=== PATIENT | male | born 1945 | race Caucasian/White ===

== ENCOUNTER 2018-10-12 13:30 | Outpatient (RCR) | payer OTHER, SELFPAY ==
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
--- NOTE | 2018-09-05 17:49 | PT.OPPOC ---
Current Diagnoses Pain in right thigh (09/05/18) Provider Visit Care Team Role Provider Type Reilly Guerra MD Attending Provider Physician Primary Care Provider Specialty: [facility] Address: [place], [address] Email: [email or web address] Plan Of Care PT-OP-T Assessment and Plan Start: 09/05/18 16:16 Freq: Status: Active Protocol: Document 09/05/18 13:45 HH (Rec: 09/05/18 16:45 HH [email or web address]) Physical Therapy Assessment Rehab Potential Rehabilitation Potential Good Evaluation Complexity Number of Personal Factors/Comorbidities 3 or More Number of Body Systems Impaired 4 or More Clinical Presentation at Evaluation Stable Impairments Impairments Activity Tolerance Functional Activities Functional Mobility Gait Pain Posture ROM Sensation Soft Tissue Mobility Strength Tone Transfers Other Concerns Barriers to Rehabilitation pt currently taking oxycodone- acetaminophen 5-325 4/5 times a day Goals Strength Impairment impaired LE strength Longterm Goal (LTG) To improve overall LE strength by 1 MMT grade for sit to stand activties without UE support. LTG Duration 12 weeks limited amb distance Impairment cannot walk >2 miles a day now Field Research Assistant Goal (LTG) Pt will be able to amb 2 miles twice a day to improve quality of life. LTG Duration 12 weeks gait Impairment impaired gait Field Research Assistant Goal (LTG) Pt will amb >300 ft without AD for 2 min walking test to improve his gait efficiency in a safe manner. LTG Duration 12 weeks LEFS Impairment high LEFS score Short Term Goal (STG) To improve pt's impairment to 1-19% to improve overall functional mobility without pain STG Duration 6 weeks Longterm Goal (LTG) To improve pt's impairment to 0% to improve overall functional mobility without pain LTG Duration 12 weeks Assessment Summary Assessment Pt presents to clinic with c/o cramping pain at R hip/ posterior of R thigh since Jul. Upon assessment, pain was only reproduced (@distal R hamstrings) with maximal resistive R knee flexion and hip extension in prone position. -ve findings for all hip and knee special tests. This possibly indicates pt had a distal hamstrings strain Pt does demonstrate significant limited trunk, hip, knee and ankle mobility, espeically B hamstrings flexibility. Pt maintains his position with B hips, knees flexed either in standing/ ambulating, which indicates his chronic muscular tension on both hamstrings and quads. Supine HS stretch was given as HEP today. Pt will benefit from skilled PT for postural training, HS flexibility ex, gait training and overall LE strengthening to prevent further injury. Physical Therapy Plan Frequency and Duration Frequency of Treatment 2x/Week Duration of Treatment 12 Plan of Care Start Date 09/05/18 Plan of Care End Date 12/05/18 Therapeutic Interventions Therapeutic Interventions Balance Training Gait Training Home Exercise Program Joint Mobilizations Manual Therapy Neuromuscular Re-education Patient/Caregiver Education Self-Care/Home Management Soft Tissue Mobilization Taping Therapeutic Activities Therapeutic Exercises Modalities Cold Pack/Ice Massage Electric Stimulation Hot Packs Next Visit Focus/Plan Next Note Type Treatment Note Next Visit Plan Reassess HEP HS flexibility ex hip ext flexibility ex Plan of Care Dates Plan of Care Start Date 09/05/18 Plan of Care End Date 12/05/18 Please Sign and Return: I have reviewed this Plan of Care and certify that the skilled therapy services above are required to meet the patient?s needs. Physician Signature Date Printed Name and Credentials Clinical Instructor Signature Printed Name and Credentials
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
== END 2018-10-13 08:32 | disposition home or self-care (01) ==
LOC: PHYS 13:30
PROVIDERS: PCP Family Medicine; Visit Provider Family Medicine
DX: M79.651 Pain in right thigh (principal)
CPT/HCPCS: 97110; 97112; 97140; 97162; 97535

== ENCOUNTER → 2018-12-15 15:26 | Outpatient (CLI) | payer OTHER, SELFPAY | PROVIDERS: PCP Family Medicine; Visit Provider Family Medicine | DX: L97.524 Non-pressure chronic ulcer of other part of left foot with necrosis of bone (principal); G90.09 Other idiopathic peripheral autonomic neuropathy; M86.172 Other acute osteomyelitis, left ankle and foot; M19.072 Primary osteoarthritis, left ankle and foot; Z98.1 Arthrodesis status; L97.526 Non-pressure chronic ulcer of other part of left foot with bone involvement without evidence of necrosis | CPT/HCPCS: 11044; 36415; 73660; 80053; 84134; 85025; 85651; 86140; 87070; 87075; 87076; 87077; 87186; 87205; 99213; 99214 ==

== ENCOUNTER → 2018-12-15 15:35 | Outpatient (CLI) | payer OTHER, SELFPAY ==
--- NOTE | 2018-12-15 15:41 | DI.RAD.S_ITS ---
PROCEDURE: XR TOE LT MIN 2V INDICATIONS: OSTEOPOROSIS TECHNIQUE: 3 views of the left foot acquired. COMPARISON: [facility], , FOOT 3V LEFT, 10/01/2009, 8:53. FINDINGS: Bones: No acute fracture or dislocation. Overall, stable alignment compared to 2010 study. Interval arthrodesis across the first tarsometatarsal joint without evidence for hardware complication. Interval left tibiotalar arthrodesis. Lateral plate and screw fixation of the distal fibula. Surgical anchors noted in the left calcaneus. Severe degenerative changes of the left midfoot and first metatarsophalangeal joint. Stable degenerative changes involving the metatarsophalangeal joints the second through fifth toes. Stable appearance of chronic amputation deformities of the second and third toes at the level of the middle phalanges. Chronic fracture deformity of the fifth metatarsal unchanged stable degenerative changes of the left first interphalangeal joint. No suspicious bony lesions. Soft tissues: No suspicious soft tissue densities or calcifications. IMPRESSION: 1. Status post interval arthrodesis of the first tarsometatarsal joint without hardware complication. 2. Status post interval arthrodesis of the left tibiotalar joint. No evidence for hardware complication. 3. Status post interval surgical intervention of the left calcaneus. 4. Stable appearance of severe osteoarthrosis of the left midfoot, metatarsophalangeal joints, and toes. 5. Stable fracture deformities of the fifth metatarsal. 6. Stable appearance of chronic amputation changes of the second and third toes. 7. Overall, no suspicious osseous lesions, periarticular osteopenia, or acute osseous abnormalities. No significant interval change in radiographic appearance of bone mineralization. Dictated by: Alejandro Lipscomb M.D. on 12/15/2018 at 17:45 Approved by: Alejandro Lipscomb M.D. on 12/15/2018 at 17:53
[2018-12-15 17:13] LABS: Add Manual Diff / Slide Review NO; Basophils Absolute Auto 0 /uL (0-100); Basophils Percent Auto 0.7 % (0-2); Eosinophils Absolute Auto 100 /uL (0-450); Hemoglobin 13.2 g/dL (13.5-17.5); Lymphocytes Absolute Auto 1400 /uL (1100-4500); Mean Corpuscular HGB Conc 34.8 % (30-36); Mean Corpuscular Hemoglobin 30.9 PG (26-34); Mean Corpuscular Volume 88.7 fL (80-100); Monocytes Absolute Auto 900 /uL (0-900); Monocytes Percent Auto 16.2 % (3-14); Neutrophils Absolute Auto 3300 /uL (1500-7000); Neutrophils Percent Auto 57.1 % (50-75); Platelet Count 282 X10^3/uL (150-400); Red Blood Cell Count 4.28 X10^6/uL (4.5-5.9); Red Cell Distribution Width 13.7 % (11.6-14.8); White Blood Cell Count 5.8 X10^3/uL (4.5-11.0)
[2018-12-15 17:39] LABS: Erythrocyte Sedimentation Rate 60 MM/HR (0-15)
[2018-12-15 18:21] LABS: Alanine Aminotransferase 20 IU/L (21-72); Albumin 4.4 g/dL (3.5-5.0); Albumin Globulin Ratio 1.5 (1.0-2.8); Alkaline Phosphatase 91 U/L (38-126); Aspartate Aminotransferase 21 IU/L (17-59); BUN Creatinine Ratio 17.8 (6-22); Bilirubin Total 0.4 mg/dL (0.2-1.3); Blood Urea Nitrogen 16 mg/dL (9-20); Calcium 9.3 mg/dL (8.4-10.2); Carbon Dioxide 29 mmol/L (22-32); Chloride 101 mmol/L (98-107); Estimated Glomerular Filt Rate > 60.0 mL/min (>60); Glucose 109 mg/dL (80-110); HEMOLYSIS < 15 (0-50); Potassium 4.2 mmol/L (3.4-5.1); Sodium 141 mmol/L (137-145); Total Protein 7.4 g/dL (6.3-8.2)
== END ==
PROVIDERS: PCP Family Medicine; Visit Provider Family Medicine
DX: L97.524 Non-pressure chronic ulcer of other part of left foot with necrosis of bone (principal); G90.09 Other idiopathic peripheral autonomic neuropathy; M86.172 Other acute osteomyelitis, left ankle and foot; M19.072 Primary osteoarthritis, left ankle and foot; Z98.1 Arthrodesis status
CPT/HCPCS: 36415; 73660; 80053; 84134; 85025; 85651; 86140

== ENCOUNTER → 2018-12-22 08:28 | Outpatient (CLI) | payer OTHER, SELFPAY | PROVIDERS: PCP Family Medicine; Visit Provider Family Medicine | DX: G90.09 Other idiopathic peripheral autonomic neuropathy (principal); L97.524 Non-pressure chronic ulcer of other part of left foot with necrosis of bone; M86.172 Other acute osteomyelitis, left ankle and foot; B95.7 Other staphylococcus as the cause of diseases classified elsewhere | CPT/HCPCS: 11044; 99213 ==

== ENCOUNTER → 2018-12-29 11:37 | Outpatient (CLI) | payer OTHER, SELFPAY | PROVIDERS: PCP Family Medicine; Visit Provider Podiatrist | DX: Z01.818 Encounter for other preprocedural examination (principal) | CPT/HCPCS: 11042; 93005; 97597; 99212; 99214 ==

== ENCOUNTER → 2019-01-05 08:26 | Outpatient (CLI) | payer OTHER, SELFPAY | PROVIDERS: PCP Family Medicine; Visit Provider Family Medicine | DX: G90.09 Other idiopathic peripheral autonomic neuropathy (principal); L97.521 Non-pressure chronic ulcer of other part of left foot limited to breakdown of skin; L89.890 Pressure ulcer of other site, unstageable; M86.172 Other acute osteomyelitis, left ankle and foot; R60.0 Localized edema; B95.7 Other staphylococcus as the cause of diseases classified elsewhere | CPT/HCPCS: 99214 ==

== ENCOUNTER 2019-01-12 11:49 | Day surgery (SDC) | payer OTHER, SELFPAY ==
[2019-01-08 14:54] VITALS: BMI 23.7
--- NOTE | 2019-01-12 | PATH_ITS ---
[facility] Accession Number: [id number] . 01 Material submitted: . toe - LEFT 4TH TOE . 02 Diagnosis: Left Fourth Toe, Amputation: Skin with ulceration and abscess and associated acute and chronic inflammation that extends into the deep subcutaneous tissue. Foreign body giant cell reaction is present within the deep subcutaneous tissue. Portions of bone with reactive features and regions of chronic osteomyelitis. MRV/01/15/2019 . 02 Electronically signed: . Haley Jorge MD, Pathologist NPI- [id number] . 01 Gross description: . Received in formalin, labeled with the patient's name and left fourth toe, is a 3.3 x 2.6 x 2.3 cm digit with a 1.0 x 0.9 cm unremarkable nail. The skin and soft tissue resection margins appear viable. Bone is not visible at the resection margin. The skin is raymundo-white and there is a 1.0 x 0.7 cm ulceration present located 0.2 cm from the resection margin. The bone within the toe appears viable. Also in the same container is a separate fragment of raymundo-brown bone measuring 1.8 x 1.4 x 1.0 cm. [employer] sections are submitted as follows: A1 - skin and soft tissue resection margin; A2 - skin ulceration; A3 - bone within digit following decalcification; A4 - separate piece of bone following decalcification. (YANIV:[id number]) /MRV . 02 Pathologist provided ICD-10: M86.672 . 02 CPT . 408666, [id number] Performed at: [address] [facility] [address], [place], [place] [id number] MD Sammy Garrison MD Phone: [phone] Performed at: [facility] [id number] [place] [id number] MD Caty Grimm MD Phone: [phone]
[2019-01-12 12:17] VITALS: BMI 23.4
[2019-01-12 12:25] VITALS: BP 160/91; PULSE 84; RESP 10; TEMP 36.3; O2SAT 99
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
[2019-01-12] MEDS: LACTATED RINGERS 1,000 ML 42 ML IV (12:44)
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
[2019-01-12] MEDS: CEFAZOLIN 1 GM VIAL IM (13:04)
--- NOTE | 2019-01-12 13:26 | SUR.OPER ---
Supine on padded OR bed, head on pillow, arms secured on padded arm boards at <90 degrees abduction, legs uncrossed, safety belt at thigh, tape over blanket over lower legs.
[2019-01-12] MEDS: BUPIVACAINE 0.5% W/ EPI (PF) VIAL 30 ML INJ (13:45)
[2019-01-12] MEDS: LIDOCAINE 2% INJ MDV 20 ML INJ (13:46)
[2019-01-12 13:59] VITALS: BP 115/68; PULSE 65; RESP 15; TEMP 36.6; O2SAT 97
--- NOTE | 2019-01-12 13:59 | P.OP_ITS ---
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 Surgeon: Pavel Vallejo Click Yes if Unassisted: Yes Anesthesia Type: Sedation and Local Operative Notes Closure Type: primary Specimen(s): other (amputation specimen 4th toe left foot) Estimated Blood Loss (mL): 2 Blood products transfused: none Tourniquet time (min): 0 Procedure in detail: Operation: The patient was taken from the day surgery area back to the OR via gurney, after having been given IV antibiotic prophylaxis. He was placed on the OR table in the supine position, appropriate monitors attached and IV sedation administered by the anesthesiologist. Local anesthetic block with approximately 9 cc plain lidocaine was administered. A calf tourniquet was placed, but not utilized throughout the case. The foot was then prepped and draped in the usual sterile fashion from the toes to tourniquet. Procedure: Amputation of 4th toe at metatarsophalangeal joint, left foot Attention was directed toward the base of the 4th toe. A modified racquet shaped incision was created at somewhat of an irregular angle due to the significant deformity within this toe. A longer medial flap was created to allow for closure. Sharp dissection was carried down with hemostasis controlled with electrocautery. The tissues appeared quite viable with decent bleeding. The toe was disarticulated at the PIP joint. After that, careful blunt dissection down the shaft of the proximal phalanx was performed with Mohawk elevator. Using a bone cutting forceps, the distal portion then of the proximal phalanx was sectioned. The bone was found be quite hard. No bony spicules remained. At this point and aggressive antibiotic irrigation was performed. Wound cultures were then taken post-irrigation. The incision was then sutured closed with 3-0 nylon. Wound edges were nice and pink with brisk capillary refill. A light gauze compression bandage was then applied. The patient tolerated the procedure and anesthesia well without any apparent complications. He left the OR with vital signs stable and digital perfusion intact. Will be allowed to be weight-bearing protected in a walking postop shoe. Will be seen for follow-up care in the [place] office next week. Complications: none Condition: stable Disposition: PACU Plan for aftercare: As above, patient is allowed to be weight-bearing protected in a postop shoe. He is to leave the bandage clean and dry and follow up with me in the [place] office in 1 week.
[2019-01-12 14:28] VITALS: BP 136/77; PULSE 61; TEMP 36.2; O2SAT 99
== END 2019-01-12 14:39 | disposition home or self-care (01) ==
PROVIDERS: PCP Family Medicine; Visit Provider Podiatrist
PROC: (CPT 28820; principal; 2019-01-12 13:00)
DX: M86.672 Other chronic osteomyelitis, left ankle and foot (principal); L97.524 Non-pressure chronic ulcer of other part of left foot with necrosis of bone; I10 Essential (primary) hypertension; I48.0 Paroxysmal atrial fibrillation
CPT/HCPCS: 28820; 87070; 87075; 87205; J0690; J2250; J2704; J3010

== ENCOUNTER → 2019-08-17 08:29 | Outpatient (CLI) | payer OTHER, SELFPAY ==
[2019-08-17 09:18] LABS: Add Manual Diff / Slide Review NO; Basophils Absolute Auto 0 /uL (0-100); Basophils Percent Auto 1.1 % (0-2); Eosinophils Absolute Auto 100 /uL (0-450); Eosinophils Percent Auto 2.4 % (2-4); Hematocrit 40.8 % (41-53); Hemoglobin 14.4 g/dL (13.5-17.5); Lymphocytes Absolute Auto 1200 /uL (1100-4500); Lymphocytes Percent Auto 28.6 % (25-40); Mean Corpuscular HGB Conc 35.2 % (30-36); Mean Corpuscular Hemoglobin 31.3 PG (26-34); Mean Corpuscular Volume 88.9 fL (80-100); Monocytes Absolute Auto 500 /uL (0-900); Neutrophils Absolute Auto 2200 /uL (1500-7000); Neutrophils Percent Auto 54.9 % (50-75); Platelet Count 218 X10^3/uL (150-400); Red Blood Cell Count 4.59 X10^6/uL (4.5-5.9); Red Cell Distribution Width 13.8 % (11.6-14.8); White Blood Cell Count 4.1 X10^3/uL (4.5-11.0)
[2019-08-17 09:40] LABS: Alanine Aminotransferase 18 IU/L (<50); Albumin 4.7 g/dL (3.5-5.0); Albumin Globulin Ratio 1.6 (1.0-2.8); Alkaline Phosphatase 79 U/L (38-126); Aspartate Aminotransferase 24 IU/L (17-59); BUN Creatinine Ratio 22.2 (6-22); Bilirubin Total 0.6 mg/dL (0.2-1.3); Blood Urea Nitrogen 20 mg/dL (9-20); Calcium 10.1 mg/dL (8.4-10.2); Carbon Dioxide 30 mmol/L (22-32); Chloride 103 mmol/L (98-107); Cholesterol 212 mg/dL (140-199); Estimated Glomerular Filt Rate > 60.0 mL/min (>60); Glucose 133 mg/dL (80-110); HDL Cholesterol 68 mg/dL (40-60); HEMOLYSIS < 15 (0-50); LDL Cholesterol Calculated 127 mg/dL (<100); Potassium 4.6 mmol/L (3.4-5.1); Sodium 140 mmol/L (137-145); Total Protein 7.7 g/dL (6.3-8.2); Triglycerides 84 mg/dL (35-150); VLDL Cholesterol Calculated 17 mg/dL (2-30)
[2019-08-17 10:01] LABS: Thyroid Stimulating Hormone 0.88 uIU/mL (0.47-4.68)
== END ==
PROVIDERS: PCP Family Medicine; Referring Provider Family Medicine; Visit Provider Family Medicine
DX: Z00.00 Encounter for general adult medical examination without abnormal findings (principal); I10 Essential (primary) hypertension; E06.3 Autoimmune thyroiditis
CPT/HCPCS: 36415; 80053; 80061; 84443; 85025

== ENCOUNTER → 2020-10-27 07:21 | Outpatient (CLI) | payer OTHER, SELFPAY ==
[2020-10-27 08:20] LABS: Hemoglobin A1C% w Est Avg Glu 6.2 % (4.0-6.0)
[2020-10-27 08:30] LABS: Alanine Aminotransferase 12 IU/L (<50); Albumin 4.1 g/dL (3.5-5.0); Albumin Globulin Ratio 1.3 (1.0-2.8); Alkaline Phosphatase 109 U/L (38-126); Aspartate Aminotransferase 19 IU/L (17-59); BUN Creatinine Ratio 18.6 (6-22); Bilirubin Total 0.3 mg/dL (0.2-1.3); Blood Urea Nitrogen 16 mg/dL (9-20); Calcium 10.2 mg/dL (8.4-10.2); Carbon Dioxide 28 mmol/L (22-32); Chloride 102 mmol/L (98-107); Cholesterol 181 mg/dL (140-199); Estimated Glomerular Filt Rate > 60.0 mL/min (>60); Globulin 3.1 g/dL (1.7-4.1); Glucose 140 mg/dL (80-110); HDL Cholesterol 69 mg/dL (40-60); HEMOLYSIS < 15 (0-50); LDL Cholesterol Calculated 94 mg/dL (<100); Potassium 4.4 mmol/L (3.4-5.1); Sodium 139 mmol/L (137-145); Total Protein 7.2 g/dL (6.3-8.2); Triglycerides 92 mg/dL (35-150)
[2020-10-27 08:34] LABS: Add Manual Diff / Slide Review NO; Basophils Absolute Auto 100 /uL (0-100); Basophils Percent Auto 0.9 % (0-2); Eosinophils Absolute Auto 100 /uL (0-450); Eosinophils Percent Auto 1.9 % (2-4); Hematocrit 36.7 % (41-53); Hemoglobin 12.6 g/dL (13.5-17.5); Lymphocytes Absolute Auto 1400 /uL (1100-4500); Lymphocytes Percent Auto 17.4 % (25-40); Mean Corpuscular HGB Conc 34.3 % (30-36); Mean Corpuscular Hemoglobin 29.8 PG (26-34); Mean Corpuscular Volume 86.8 fL (80-100); Monocytes Absolute Auto 800 /uL (0-900); Monocytes Percent Auto 10.3 % (3-14); Neutrophils Absolute Auto 5500 /uL (1500-7000); Neutrophils Percent Auto 69.5 % (50-75); Platelet Count 302 X10^3/uL (150-400); Red Blood Cell Count 4.23 X10^6/uL (4.5-5.9); Red Cell Distribution Width 13.7 % (11.6-14.8); White Blood Cell Count 7.9 X10^3/uL (4.5-11.0)
[2020-10-27 08:55] LABS: Thyroid Stimulating Hormone 1.14 uIU/mL (0.47-4.68)
== END ==
PROVIDERS: PCP Family Medicine; Referring Provider Family Medicine; Visit Provider Family Medicine
DX: Z00.00 Encounter for general adult medical examination without abnormal findings (principal); R73.03 Prediabetes; E78.5 Hyperlipidemia, unspecified
CPT/HCPCS: 36415; 80053; 80061; 83036; 84443; 85025

== ENCOUNTER 2023-08-03 08:32 | Inpatient (IN) | payer OTHER, SELFPAY ==
[2023-08-03] VITALS (20 sets, daily range): BP systolic 113–165; BP diastolic 57–91; PULSE 73–97; RESP 10–17; TEMP 36.1–36.9; O2SAT 94–100; BMI 22.5; BMI 21.2
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
--- NOTE | 2023-08-03 09:05 | DI.CT.S_ITS ---
PROCEDURE: CT UE LT W CON INDICATIONS: hand/wrist/forarm abscess after cat bite TECHNIQUE: After the administration of intravenous contrast, 3 mm axial sections acquired of the left distal forearm and hand , with coronal and sagittal reformats. COMPARISON: None. FINDINGS: Image quality: Excellent. Bones: No fracture or osseous lesion. Soft tissues: Multiple adjacent peripherally enhancing multi locular fluid collections within the dorsal and radial aspect of the distal forearm and wrist are present, spanning roughly 45 mm transverse by 15 mm craniocaudal. At the volar aspect of the ulnocarpal interface, there is an 18 mm peripherally enhancing fluid collection. IMPRESSION: 1. Multiple fluid collections as described above, consistent with abscesses in the appropriate clinical setting. Dictated by: Tyler Conte M.D. on 08/03/2023 at 9:47 Approved by: Tyler Conte M.D. on 08/03/2023 at 9:51
--- NOTE | 2023-08-03 09:05 | PC.NURSE ---
Pt came in because he got bit by his cat in the left wrist. Pt states that cat was a stray prior and unsure if cat is up to date on feline vaccinations. Pt also unsure of how many abx pills he has taken. Pt has seen pcp and failed outpatient antibiotic tx. Left wrist puncture wound with yellow drainage and surrounding tissue 2+ non-pitting edema and warm to touch. Pt HR 110. Pt states that he has a 5/10 pain and that the skin feels tight. Pt a&ox4.
[2023-08-03 09:09] LABS: Add Manual Diff / Slide Review NO; Basophils Absolute Auto 100 /uL (0-100); Basophils Percent Auto 0.9 % (0-2); Eosinophils Absolute Auto 100 /uL (0-450); Eosinophils Percent Auto 0.9 % (2-4); Hematocrit 35.7 % (41-53); Hemoglobin 12.4 g/dL (13.5-17.5); Lymphocytes Absolute Auto 1300 /uL (1100-4500); Lymphocytes Percent Auto 18.3 % (25-40); Mean Corpuscular HGB Conc 34.8 % (30-36); Mean Corpuscular Hemoglobin 28.9 PG (26-34); Mean Corpuscular Volume 83.1 fL (80-100); Monocytes Absolute Auto 800 /uL (0-900); Monocytes Percent Auto 11.1 % (3-14); Neutrophils Absolute Auto 5000 /uL (1500-7000); Neutrophils Percent Auto 68.8 % (50-75); Platelet Count 354 X10^3/uL (150-400); Red Blood Cell Count 4.29 X10^6/uL (4.5-5.9); Red Cell Distribution Width 14.1 % (11.6-14.8); White Blood Cell Count 7.3 X10^3/uL (4.5-11.0)
[2023-08-03 09:15] LABS: Alanine Aminotransferase 13 IU/L (<50); Albumin 4.3 g/dL (3.5-5.0); Albumin Globulin Ratio 1.1 (1.0-2.8); Alkaline Phosphatase 125 U/L (38-126); Aspartate Aminotransferase 20 IU/L (17-59); BUN Creatinine Ratio 17.7 (6-22); Bilirubin Total 0.5 mg/dL (0.2-1.3); Blood Urea Nitrogen 14 mg/dL (9-20); Calcium 9.8 mg/dL (8.4-10.2); Carbon Dioxide 25 mmol/L (22-32); Chloride 104 mmol/L (98-107); Estimated Glomerular Filt Rate > 60 mL/min (>60); Glucose 125 mg/dL (80-110); HEMOLYSIS < 15 (0-50); Potassium 3.6 mmol/L (3.4-5.1); Sodium 139 mmol/L (137-145); Total Protein 8.3 g/dL (6.3-8.2)
[2023-08-03 09:16] LABS: Lactate (Lactic Acid) 1.3 mmol/L (0.7-2.1)
[2023-08-03] MEDS: cefTRIAXone 2,000 MG in SODIUM CHLORIDE 0.9% 100 ML 200 MG IV (09:26)
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
[2023-08-03] MEDS: SODIUM CHLORIDE 0.9% 1,000 ML 100 ML IV (13:39)
[2023-08-03] MEDS: CLINDAMYCIN 600 MG/50 ML PIGGYBACK 50 MG IV (13:39)
--- NOTE | 2023-08-03 15:00 | SUR.OPER ---
Supine on padded OR bed, head on pillow, RIGHT arm secured on padded arm boards at <90 degrees abduction, LEFT ARM ON ARM BOARD AND HELD ON FIELD, legs uncrossed, safety belt at thigh, tape over blanket over lower legs.
[2023-08-03] MEDS: BUPIVACAINE 0.25% (PF) 30 ML, EPINEPHrine 0.15 MG INJ (15:07)
--- NOTE | 2023-08-03 15:13 | P.OP_ITS ---
Operative Date/Time/Diagnoses Date of procedure: 08/03/23 Time of procedure: 14:40 Pre-op diagnosis: Cat bite left hand and wrist, with infection, abscess L02.419, W55.01xa Post-op diagnosis: same Procedure & Clinicians Procedure: Incision drainage and irrigation abscess deep left wrist CPT code 23793 Same procedure as scheduled: Yes Indications: The patient is a right-hand dominant male a 78 years old he was bit by his personal home pet cat on the left wrist just over 1 week ago he had a puncture wound dorsally along his dorsal radial wrist that became more swollen and painful and red and started draining. Saw primary care yesterday and received Augmentin but had worsening swelling pain and purulent drainage with fluctuance. He was seen in the emergency room a CT scan demonstrated multiple, multiloculated abscesses at the dorsal wrist. He was indicated for formal drainage of his abscess and admission for IV antibiotics due to his deep infection. The risks and benefits of the procedure have been discussed with the patient and given the opportunity to ask questions. The risks of surgery include but are not limited to infection, malunion, nonunion, persistence of pain, damage to nerves and blood vessels, posttraumatic arthritis, DVT, PE, coardiopulmonary complications and . The patient expressed a thorough understanding of the risks and benefits of surgery and has elected to proceed. Consent was signed in the office today. Surgeon: Shannon Molina Click Yes if Unassisted: Yes Anesthesia Type: General and Local Operative Notes Findings: Dorsal radial wrist abscess with fluctuance and tracking over the dorsal wrist and proximal and radial with purulent drainage. Wound at the dorsal radial wrist proximally 0.5 cm draining purulent fluid with surrounding induration Closure Type: not applicable Specimen(s): other (Tissue and culture swabs sent for Gram stain, culture) Estimated Blood Loss (mL): 10 Tourniquet time (min): 7 Procedure in detail: Patient was seen in the preoperative area the site of surgery marked informed consent confirmed. The patient was brought to the operating room. General anesthesia was administered. The left upper extremity was prepped and draped in the standard sterile fashion a formal time-out procedure was performed confirming the patient's side and site of surgery administration of his regularly scheduled IV antibiotics. Attention was turned to the left upper extremity this was prepped and draped in the standard sterile fashion. [place] exsanguination was utilized and the tourniquet raised on the arm to 250 mmHg. Attention was turned to the hand there was a dorsal radial puncture wound with gross draining purulence and fluctuance tracking subcutaneously dorsally over the wrist as well some fluctuance proximally along the radial wrist and distal forearm. The puncture wound was excised and opened distally and proximally to allow access to the abscess cavity this was complex multiloculated with a abscess track proximally radially along the 1st dorsal compartment and subcutaneously over the dorsum of the wrist and a 3rd deeper pocket in between the extensors. Abscess cavities were explored fully. This was opened using the hemostat and tenotomy scissors. Tissue samples were taken for culture. And culture swabs were taken. The purulence from the abscess cavities was expressed and evacuated. The wound was thoroughly irrigated with 3 L of saline using cysto tubing and the wound further debrided with forceps and tenotomy scissors. Tourniquet was released hemostasis was achieved. No foreign bodies were found. Drapes were changed to clean drapes and clean dry gloves. A nylon stitch was placed in each corner of the extensile parts of the incision and the central portion of the wound was packed with plain quarter-inch packing gauze tracked into the dorsal and radial abscess cavities to keep the wound open. 10 cc of 0.25% Marcaine with epinephrine was used as local anesthetic. Sterile gauze and a Joanna wrap and then Coban were applied. The patient was woken from anesthesia and taken to the recovery room in good condition there were no immediate complications from this procedure all counts were correct. Complications: none Post-operative Condition: stable Disposition: PACU Plan for aftercare: Range of motion of the wrist and fingers as tolerated. Tomorrow we will start b.i.d. warm soapy soaks in warm soapy water for about 15 minutes remove packing and replace a packing wick or small piece of gauze to keep the area open for the next 3 days then may cease packing but continue twice daily warm soapy soaks. There are [address] that will come out at the 2 week postoperative appointment. Will be tailored from IV to oral antibiotics based on cultures sensitivities and clinical improvement
[2023-08-03] MEDS: MORPHINE 2 MG/ML INJ 3 MG IV (16:45)
[2023-08-03] MEDS: OXYCODONE IR 5 MG TABLET PO (19:52)
[2023-08-04] MEDS: OXYCODONE IR 5 MG TABLET PO ×4 (01:52→18:24)
[2023-08-04 06:38] LABS: Add Manual Diff / Slide Review NO; Basophils Absolute Auto 0 /uL (0-100); Basophils Percent Auto 0.4 % (0-2); Eosinophils Absolute Auto 0 /uL (0-450); Eosinophils Percent Auto 0.2 % (2-4); Hematocrit 34.5 % (41-53); Hemoglobin 11.7 g/dL (13.5-17.5); Lymphocytes Absolute Auto 1300 /uL (1100-4500); Mean Corpuscular HGB Conc 33.9 % (30-36); Mean Corpuscular Hemoglobin 28.6 PG (26-34); Mean Corpuscular Volume 84.5 fL (80-100); Monocytes Absolute Auto 900 /uL (0-900); Monocytes Percent Auto 10.7 % (3-14); Neutrophils Absolute Auto 6300 /uL (1500-7000); Neutrophils Percent Auto 73.7 % (50-75); Platelet Count 341 X10^3/uL (150-400); Red Blood Cell Count 4.09 X10^6/uL (4.5-5.9); White Blood Cell Count 8.6 X10^3/uL (4.5-11.0)
[2023-08-04 06:50] LABS: Alanine Aminotransferase 11 IU/L (<50); Albumin 3.9 g/dL (3.5-5.0); Albumin Globulin Ratio 1.1 (1.0-2.8); Alkaline Phosphatase 105 U/L (38-126); Aspartate Aminotransferase 21 IU/L (17-59); BUN Creatinine Ratio 17.3 (6-22); Bilirubin Total 0.5 mg/dL (0.2-1.3); Blood Urea Nitrogen 14 mg/dL (9-20); Calcium 9.3 mg/dL (8.4-10.2); Carbon Dioxide 33 mmol/L (22-32); Chloride 107 mmol/L (98-107); Estimated Glomerular Filt Rate > 60 mL/min (>60); Globulin 3.7 g/dL (1.7-4.1); Glucose 107 mg/dL (80-110); HEMOLYSIS 18 (0-50); Potassium 3.8 mmol/L (3.4-5.1); Sodium 141 mmol/L (137-145); Total Protein 7.6 g/dL (6.3-8.2)
[2023-08-04 07:00] VITALS: BP 161/86; PULSE 84; RESP 16; TEMP 36.9; O2SAT 99
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
[2023-08-04 09:03] VITALS: BP 161/86; PULSE 84
[2023-08-04] MEDS: hydroCHLOROthiazide 25 MG TABLET 12.5 MG PO (09:03)
[2023-08-04] MEDS: lisinopriL 10 MG TABLET PO (09:03)
[2023-08-04] MEDS: METOPROLOL ER 25 MG TABLET PO (09:03)
--- NOTE | 2023-08-04 09:27 | CM.DANOTE ---
Initial DCP Assessment Visit Note Reviewed EMR and team rounds for pt's medical status and updates. Met with pt and his nephew at bedside to introduce self and role, pt found to be alert/oriented and able to express needs/preferences for d/c. His nephew will plan to drive him home once he's medically ready. Payor: Victoria Gifford PCP: Dr. Guerra Pt is a 78 year-old M who presented to the ED last evening with a worsening cat bite wound he incured on 07/25 on his left wrist. He was seen by his PCP on 07/29 and started on oral augmentin, however it continued to worsen despite the antibiotics. His hand is now swollen into his forearm w/purulent discharge. Ortho was consulted/Dr. Molina, who agreed to the plan to take pt to the OR yesterday afternoon for an I&D of his forearm and wrist. He was then admitted to the floor for continued IV ABO's tx and post-op wound care. He has instructions from Ortho to f/u in 2-weeks in their clinic for wound assessment. No anticipated home d/c needs at this time. DCP will continue to follow and assist as needed. Discharge Planning/Care Management CM Discharge Assessment Start: 08/04/23 09:21 Freq: Status: Active Protocol: Document 08/04/23 09:21 DPL (Rec: 08/04/23 09:26 DPL [id number]) Discharge Planning Assessment Assigned Failure Analysis Technician JANAE Roman Advance Directives? Yes: POSLT Advance Directives on File Yes History Provided By Patient,Medical Record Has Patient been admitted in last 30 No days? Prior Living Arrangements House Household Members none Type of transporation used prior to Drives own vehicle admit Independent with ADL's Yes Is patient alert and oriented? Yes Comment N/A Comment N/A Comment N/A Comment No identified home d/c needs at this time. Barriers to Discharge No Discharge Plan Home Transportation Arrangement Nephew Referrals Initiated None needed Whiteboard Updated in Patient Room with Yes name and ext. # of Failure Analysis Technician Review Status In Process Please Provide Date Initial DC 08/04/23 Assessment Was Performed
[2023-08-04 10:21] VITALS: PULSE 81
[2023-08-04] MEDS: cefTRIAXone 2,000 MG in SODIUM CHLORIDE 0.9% 100 ML 200 MG IV (10:27)
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
[2023-08-04] MEDS: CLINDAMYCIN 600 MG/50 ML PIGGYBACK 50 MG IV ×3 (11:17→22:24)
[2023-08-04] MEDS: ACETAMINOPHEN 325 MG TABLET 650 MG PO (12:11)
[2023-08-04] MEDS: MORPHINE 2 MG/ML INJ 3 MG IV ×2 (16:45→22:24)
[2023-08-04 20:00] VITALS: O2SAT 96
[2023-08-04 22:00] VITALS: BP 111/61; PULSE 82; RESP 17; TEMP 36.9; O2SAT 96
[2023-08-05] MEDS: ACETAMINOPHEN 325 MG TABLET 650 MG PO ×3 (00:58→20:47)
[2023-08-05] MEDS: OXYCODONE IR 5 MG TABLET PO ×3 (00:58→20:48)
[2023-08-05] MEDS: CLINDAMYCIN 600 MG/50 ML PIGGYBACK 50 MG IV (05:20)
--- NOTE | 2023-08-05 06:24 | DI.MRI.S_ITS ---
PROCEDURE: MR WRIST LT WO/W CON INDICATIONS: infection TECHNIQUE: Noncontrast coronal proton density fast spin echo and T2 fast spin echo with fat saturation; coronal 3-D gradient echo, axial T1 spin echo and T2 fast spin echo with fat saturation, axial T1 spin echo with fat saturation, sagittal T1 spin echo through the wrist. Post-contrast axial, coronal, and sagittal T1 spin echo with fat saturation through the wrist. COMPARISON: None. FINDINGS: Image quality: Excellent. Bones and cartilage: Osteoarthritic changes are noted throughout left wrist joints with joint space narrowing, subchondral sclerosis and marginal osteophyte formation. Subcortical T2 hyperintense and T1 hypointense areas are noted scattered throughout carpal bones and show mild contrast enhancement. No evidence of avascular necrosis . No cortical destruction or abnormal periosteal reaction. Carpal ligaments: The scapholunate and lunotriquetral ligaments appear intact. In the absence of intra-articular contrast, the extrinsic carpal ligaments are not well identified. On sagittal images, the pisohamate ligament appears intact. Triangular fibrocartilage complex: Signal abnormality within central and lateral portion of triangular fibrocartilage is seen concerning for TFC tear. The adjacent meniscal homolog appears normal in the absence of intra-articular contrast. The extensor carpi ulnaris tendon is normal in location and morphology. Tendons and soft tissues: There is soft tissue swelling with overlying skin ulceration over dorsal and radial aspect of wrist at the level of carpal bones. There is significant fluid distension of adjacent 2nd extensor compartment tendon sheath with heterogeneous contrast enhancement. Thickened extensor carpi radialis and brevis tendons is seen with intrasubstance T2 hyperintense signal at the level of proximal carpal row suggestive of moderate tenosynovitis and intrasubstance partial-thickness tear. Markedly thickened extensor pollicis longus tendon with intrasubstance T2 hyperintense signal and fluid distending tendon sheath at the level of Tang's tubercle is also seen. No discrete drainable peripherally enhancing fluid collection is noted. Rest of the extensor tendons are intact. The carpal tunnel structures appear normal, including the median nerve. The ulnar nerve appears normal within Guyon's canal. IMPRESSION: 1. Ulceration and cellulitis over dorsal and radial aspect of wrist at the level of carpal bones. No discrete drainable abscess collection. 2. Moderate grade tenosynovitis and intrasubstance partial-thickness tear involving 2nd and 3rd extensor compartment at the level of proximal carpal row as described above. No full-thickness tendon rupture. 3. Osteoarthritic changes throughout wrist joints. Subcortical T2 hyperintense signal scattered in carpal bones and show mild contrast enhancement concerning for erosion possibly secondary to inflammatory arthropathy suggest clinical correlation. No MR evidence of osteomyelitis. No fracture or dislocation. No evidence of avascular necrosis. 4. Scapholunate and lunotriquetral ligaments are intact. 5. Suggestion of triangular fibrocartilage tear in its mid and radial portion. Dictated by: Nishant Benson M.D. on 08/05/2023 at 9:25 Approved by: Nishant Benson M.D. on 08/05/2023 at 9:51
[2023-08-05] MEDS: PIPERACILLIN/TAZO 4.5 GM in SODIUM CHLORIDE 0.9% 100 ML IV (06:55)
--- NOTE | 2023-08-05 07:32 | PC.NURSE ---
Day shift: Off unit for MRI at approx 0725.
[2023-08-05 07:41] LABS: Erythrocyte Sedimentation Rate 83 MM/HR (0-15)
[2023-08-05] MEDS: hydroCHLOROthiazide 25 MG TABLET 12.5 MG PO (08:58)
[2023-08-05] MEDS: METOPROLOL ER 25 MG TABLET PO (08:58)
[2023-08-05] MEDS: lisinopriL 10 MG TABLET PO (08:58)
[2023-08-05 09:00] VITALS: BP 127/73; PULSE 83; RESP 20; TEMP 36; O2SAT 97
[2023-08-05 09:14] VITALS: O2SAT 96
[2023-08-05 10:04] VITALS: PULSE 80
[2023-08-05] MEDS: PIPERACILLIN/TAZO 3.375 GM in SODIUM CHLORIDE 0.9% 100 ML IV ×2 (10:09→18:03)
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
[2023-08-05] MEDS: MORPHINE 2 MG/ML INJ 3 MG IV ×2 (12:33→18:44)
--- NOTE | 2023-08-05 12:55 | PC.NURSE ---
Day shift: Dressing and packing changed at approx 1245. Tolerated well.
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
--- NOTE | 2023-08-05 14:14 | CM.DPNOTE ---
Addendum entered by JANAE Cox 08/05/23 15:55: Per OT, rec home with assistance. OT reports pt has local friends/neighbors that could help him but may need more assistance with cooking/cleaning in the short term. OT reports pt has a cane that he normally occasionally uses and needed to rely on it a bit more than normal. This was unclear if weakness was due to pt's current pain medication or additional factors. OT reports pt said he hasn't been up much since admission. OT encouraged pt to move with nursing staff but reports it may be helpful to consider PT eval if tomorrow pt continues to feel weaker than baseline. CM team will continue to follow closely for ambulation concerns/safe dcp needs. SL Original Note: DCP Note LIGHTING EQUIPMENT OPERATOR reviewed EMR. Per PN, pt anticipated to dc home tomorrow after another day of IV abx. Per RN, could benefit from OT eval due to missing some fingers on the left hand with the infection and concerns for ability to manage ADLs. LIGHTING EQUIPMENT OPERATOR placed OT eval order. Per previous CM notes, anticipate no other CM needs, home with nephew when medically stable. Per RN, overall pt doing well, no additional obvious CM needs identified. OT eval pending. Plan: anticipate home tomorrow with nephew to transport w/ PO abx. Anticipate no CM needs. CM team will follow as needed. JANAE Cox
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
[2023-08-05] MEDS: LACTOBACILLUS ACIDOPHILUS TABLET 1 EACH PO (16:09)
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
[2023-08-05 20:32] VITALS: BP 125/68; PULSE 86; RESP 16; TEMP 36.4; O2SAT 97
[2023-08-05 20:35] VITALS: O2SAT 97
[2023-08-06] MEDS: PIPERACILLIN/TAZO 3.375 GM in SODIUM CHLORIDE 0.9% 100 ML IV ×2 (02:37→10:08)
[2023-08-06] MEDS: OXYCODONE IR 5 MG TABLET PO ×2 (03:27→09:36)
[2023-08-06] MEDS: ACETAMINOPHEN 325 MG TABLET 650 MG PO (03:28)
[2023-08-06 07:00] VITALS: BP 149/81; PULSE 82; RESP 16; TEMP 36.2; O2SAT 98
[2023-08-06] MEDS: LACTOBACILLUS ACIDOPHILUS TABLET 1 EACH PO ×2 (07:28→11:13)
[2023-08-06 07:45] VITALS: O2SAT 97
[2023-08-06] MEDS: hydroCHLOROthiazide 25 MG TABLET 12.5 MG PO (08:38)
[2023-08-06] MEDS: lisinopriL 10 MG TABLET PO (08:38)
[2023-08-06] MEDS: METOPROLOL ER 25 MG TABLET PO (08:38)
[2023-08-06 09:35] VITALS: PULSE 80
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
--- NOTE | 2023-08-06 11:46 | CM.DPC ---
DCP Discharge Home Per MD, pt's cultures returned and was transitioned to PO abx and medically stable to discharge home and outpt f/u with PCP and Ortho in 2 weeks and no identified barriers to discharge. Pt's nephew to transport home today and assist as needed. Per RN, no concerns noted. Plan: Patient to d/c home today via family POV and PO abx with outpt f/u with PCP and Ortho in the next two weeks, No further SW needs at this time. JANAE López
--- NOTE | 2023-08-06 15:03 | PC.NURSE ---
Day shift: Let unit via WC at approx 1435. Family member is driving him home. Went over in length wound care and he verbalized understanding. Print-out with d/c instructions given as well. Also was given supplies to preform these wound cares daily X2 for at least 7 days. Paperwork signed and all questions answered. Pt has all personal belongings. scripts sent electronic to Pt's pharmacy.
== END 2023-08-06 15:07 | disposition home or self-care (01) | DRG 989 ==
LOC: ED 10:59 → AC 11:40
PROVIDERS: Orthopaedic Surgery Foot and Ankle Surgery; Admitting Provider Family Medicine; Emergency Provider Emergency Medicine; PCP Family Medicine; Referring Provider Emergency Medicine; Visit Provider Family Medicine
PROC: 0RBP0ZZ Excision of Left Wrist Joint, Open Approach (ICD-10-PCS; principal; 2023-08-03 17:15)
DX: L02.414 Cutaneous abscess of left upper limb (principal); I10 Essential (primary) hypertension; G89.29 Other chronic pain; R19.7 Diarrhea, unspecified; B96.89 Other specified bacterial agents as the cause of diseases classified elsewhere; W55.01XA Bitten by cat, initial encounter
CPT/HCPCS: 36415; 73201; 73223; 80053; 83605; 85025; 85651; 86140; 87040; 87070; 87075; 87077; 87176; 87186; 87205; 96365; 97165; 97530; 99284; 99285; A9579; J0171; J0330; J0696; J1100; J2250; J2270; J2405; J2543; J2704; J3010

== ENCOUNTER → 2024-03-16 13:30 | Outpatient (CLI) | payer OTHER, SELFPAY ==
[2023-08-03 12:25] VITALS: BMI 21.2
== END ==
PROVIDERS: PCP Family Medicine; Referring Provider Family Medicine; Visit Provider Physician Assistant
DX: L97.522 Non-pressure chronic ulcer of other part of left foot with fat layer exposed (principal); G62.9 Polyneuropathy, unspecified; L08.89 Other specified local infections of the skin and subcutaneous tissue; L84 Corns and callosities; R60.0 Localized edema; M14.672 Charcot's joint, left ankle and foot; G83.10 Monoplegia of lower limb affecting unspecified side; Z79.2 Long term (current) use of antibiotics
CPT/HCPCS: 11042; 87070; 87077; 87186; 87205; 99204; 99214

== ENCOUNTER → 2024-03-16 16:07 | Outpatient (CLI) | payer OTHER, SELFPAY ==
[2023-08-03 12:25] VITALS: BMI 21.2
--- NOTE | 2024-03-16 16:10 | DI.US.S_ITS ---
PROCEDURE: US PERIPH VENOUS LOW EXTREM LT INDICATIONS: SWELLING TECHNIQUE: Real-time imaging, as well as color and pulse Doppler interrogation, were performed of the lower extremity deep veins from the inguinal ligament to the popliteal fossa, with documentation of the visualized calf veins. COMPARISON: None. FINDINGS: The common femoral, femoral, popliteal, and the visualized calf veins are normally compressible, and free of intraluminal thrombus. Color and pulse Doppler demonstrate normal phasic intraluminal flow. There is normal augmentation response to distal compression maneuver. Moderate edema in subcutaneous tissues at the ankle. The incidentally noted arteries appear patent. Prominent left inguinal lymph nodes with large fatty braydon. IMPRESSION: No DVT in the left lower extremity. Probable reactive left groin adenopathy. Moderate edema at the left ankle, nonspecific. Preliminary report conveyed by the kiln mechanic to the ordering provider. Dictated by: April Hong M.D. on 03/16/2024 at 17:38 Approved by: April Hong M.D. on 03/16/2024 at 17:41
--- NOTE | 2024-03-16 16:10 | DI.RAD.S_ITS ---
PROCEDURE: XR FOOT LT MIN 3V INDICATIONS: Please evaluate for osteomyelitis, stage 3 ulcer probes to bone TECHNIQUE: 3 views of the foot were acquired. COMPARISON: (prior imaging is not available for review from the archive at the time of this dictation.) FINDINGS: Bones: There is lucency seen involving the distal phalanx of the great toe, with mild fragmentation. Generalized prominent degenerative changes are seen, particularly involving the hindfoot. Prior apparent amputation changes can be seen involving the 2nd, 3rd, and 4th toes. Prior fusion change can be seen involving the 1st tarsometatarsal joint. Postoperative change of the ankle is also seen. There is a remote fracture of the 5th metatarsal shaft. No acute fractures are identified. Soft tissues: There is soft tissue swelling seen of the great toe, with soft tissue gas. IMPRESSION: High suspicion for osteomyelitis involving the distal aspect of the great toe. If there is strong suspicion for developing osteomyelitis, please consider a dedicated MRI without and with contrast for further evaluation (assuming that there is no contraindication to MRI). Apparent prior amputation changes seen involving the 2nd through 4th toes. Please correlate with known patient history. Dictated by: Nasir Mccormick M.D. on 03/16/2024 at 15:42 Approved by: Nasir Mccormick M.D. on 03/16/2024 at 15:44
== END ==
PROVIDERS: PCP Family Medicine; Referring Provider Physician Assistant; Visit Provider Physician Assistant
DX: L08.9 Local infection of the skin and subcutaneous tissue, unspecified (principal); R60.9 Edema, unspecified
CPT/HCPCS: 73630; 87070; 87077; 87205; 93971

== ENCOUNTER → 2024-03-19 13:04 | Outpatient (CLI) | payer OTHER, SELFPAY ==
[2023-08-03 12:25] VITALS: BMI 21.2
== END ==
LOC: WC 13:04
PROVIDERS: PCP Family Medicine; Referring Provider Family Medicine; Visit Provider Surgery
DX: L97.522 Non-pressure chronic ulcer of other part of left foot with fat layer exposed (principal); G62.9 Polyneuropathy, unspecified; L84 Corns and callosities; R60.0 Localized edema
CPT/HCPCS: 99213

== ENCOUNTER → 2024-03-21 09:41 | Outpatient (CLI) | payer OTHER, SELFPAY ==
[2023-08-03 12:25] VITALS: BMI 21.2
== END ==
LOC: WC 09:43
PROVIDERS: PCP Family Medicine; Referring Provider Family Medicine; Visit Provider Surgery
DX: L97.522 Non-pressure chronic ulcer of other part of left foot with fat layer exposed (principal); G62.9 Polyneuropathy, unspecified; L84 Corns and callosities; R60.0 Localized edema
CPT/HCPCS: 99213

== ENCOUNTER → 2024-03-22 11:28 | Outpatient (CLI) | payer OTHER, SELFPAY ==
[2023-08-03 12:25] VITALS: BMI 21.2
--- NOTE | 2024-03-22 11:30 | DI.MRI.S_ITS ---
PROCEDURE: MR FOOT LT WO/W CON INDICATIONS: Stage 3 ulcer of left great toe TECHNIQUE: Noncontrast coronal T1 spin echo and STIR, sagittal T1 spin echo with fat saturation and STIR, axial T1 spin echo and T2 fast spin echo with fat saturation. After the administration of contrast, axial/sagittal/coronal T1 spin echo with fat saturation through the left foot . COMPARISON: [facility], CR, XR FOOT LT MIN 3V, 03/16/2024, 16:08. FINDINGS: Image quality: Significant susceptibility artifacts and patient motion is noted. Bones: Postsurgical changes are noted at 1st TMT joint with susceptibility artifacts. There is extensive marrow edema throughout 1st distal phalanx. Marrow edema is also noted involving 1st proximal phalangeal head. Extensive erosion involving distal portion of 1st proximal phalanx is seen. No other area of marrow edema or bony erosive changes. After IV contrast infusion, there is contrast enhancement in the above-mentioned area of edema. No acute fracture or dislocation. No other area of abnormal enhancement. Soft tissues: Significant soft tissue swelling and edema surrounding left great toe is seen extending to involve soft tissue around 2nd toe and over dorsal aspect of forefoot. No discrete peripherally enhancing drainable fluid collection is noted. No enhancing soft tissue mass. Extensor and flexor tendons are grossly intact. IMPRESSION: 1. Significant cellulitis and ulceration involving left great toe extending to involve soft tissue around 2nd toe and over dorsal aspect of forefoot. No discrete drainable abscess collection. 2. Osteomyelitis involving 1st distal phalanx and 1st proximal phalangeal head. No fracture or dislocation. Postsurgical changes at 1st TMT joint. No other area of abnormal intraosseous enhancement. No gross metatarsal stress fractures. 3. Extensor and flexor tendons are grossly intact. Dictated by: Nishant Benson M.D. on 03/22/2024 at 13:25 Approved by: Nishant Benson M.D. on 03/22/2024 at 13:39
== END ==
PROVIDERS: PCP Family Medicine; Referring Provider Physician Assistant; Visit Provider Physician Assistant
DX: M86.9 Osteomyelitis, unspecified (principal); L03.032 Cellulitis of left toe; L97.529 Non-pressure chronic ulcer of other part of left foot with unspecified severity; L08.9 Local infection of the skin and subcutaneous tissue, unspecified
CPT/HCPCS: 73720; A9579

== ENCOUNTER → 2024-03-23 09:25 | Outpatient (CLI) | payer OTHER, SELFPAY ==
[2023-08-03 12:25] VITALS: BMI 21.2
== END ==
PROVIDERS: PCP Family Medicine; Referring Provider Family Medicine; Visit Provider Surgery
DX: L97.526 Non-pressure chronic ulcer of other part of left foot with bone involvement without evidence of necrosis (principal); L03.032 Cellulitis of left toe; M86.172 Other acute osteomyelitis, left ankle and foot; G62.9 Polyneuropathy, unspecified; L84 Corns and callosities; R60.0 Localized edema
CPT/HCPCS: 11042; 99214

== ENCOUNTER 2024-03-23 10:47 | Emergency (ER) | payer OTHER, SELFPAY ==
[2023-08-03 12:25] VITALS: BMI 21.2
[2024-03-23] VITALS (9 sets, daily range): BP systolic 110–156; BP diastolic 63–81; PULSE 64–75; RESP 18; TEMP 36.6; O2SAT 97–100; BMI 20.6
[2024-03-23 11:35] LABS: Add Manual Diff / Slide Review NO; Basophils Absolute Auto 100 /uL (0-100); Basophils Percent Auto 1.3 % (0-2); Eosinophils Absolute Auto 100 /uL (0-450); Eosinophils Percent Auto 2.6 % (2-4); Hematocrit 35.4 % (41-53); Lymphocytes Absolute Auto 1100 /uL (1100-4500); Lymphocytes Percent Auto 20.1 % (25-40); Mean Corpuscular Hemoglobin 30.4 PG (26-34); Mean Corpuscular Volume 89.5 fL (80-100); Monocytes Absolute Auto 700 /uL (0-900); Monocytes Percent Auto 12.9 % (3-14); Neutrophils Absolute Auto 3400 /uL (1500-7000); Neutrophils Percent Auto 63.1 % (50-75); Platelet Count 394 X10^3/uL (150-400); Red Blood Cell Count 3.95 X10^6/uL (4.5-5.9); White Blood Cell Count 5.4 X10^3/uL (4.5-11.0)
[2024-03-23 11:55] LABS: Alanine Aminotransferase 21 IU/L (<50); Albumin 4.2 g/dL (3.5-5.0); Albumin Globulin Ratio 1.3 (1.0-2.8); Alkaline Phosphatase 103 U/L (38-126); Aspartate Aminotransferase 24 IU/L (17-59); BUN Creatinine Ratio 24.3 (6-22); Bilirubin Total 0.4 mg/dL (0.2-1.3); Blood Urea Nitrogen 25 mg/dL (9-20); Calcium 9.6 mg/dL (8.4-10.2); Carbon Dioxide 30 mmol/L (22-32); Chloride 103 mmol/L (98-107); Estimated Glomerular Filt Rate > 60 mL/min (>60); Globulin 3.3 g/dL (1.7-4.1); Glucose 102 mg/dL (80-110); HEMOLYSIS < 15 (0-50); Potassium 4.5 mmol/L (3.4-5.1); Sodium 140 mmol/L (137-145); Total Protein 7.5 g/dL (6.3-8.2)
[2024-03-23 12:33] LABS: C-Reactive Protein Quant < 0.5 mg/dL (<1.0)
[2024-03-23 12:35] LABS: Erythrocyte Sedimentation Rate 46 MM/HR (0-15)
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
--- NOTE | 2024-03-23 13:27 | PC.NURSE ---
Patient has loss of sensation in lower extremities, has known wound on left big toe and was told to come here to take care of the infection. Patient denies pain, fever, chills at this time.
[2024-03-23 13:45] LABS: Lactate (Lactic Acid) 1.3 mmol/L (0.7-2.1)
[2024-03-23] MEDS: CEFEPIME 2 GM in SODIUM CHLORIDE 0.9% 100 ML IV (13:51)
[2024-03-23] MEDS: cefTRIAXone 1,000 MG in SODIUM CHLORIDE 0.9% 100 ML 200 MG IV (14:54)
== END 2024-03-23 15:47 | disposition home or self-care (01) ==
PROVIDERS: Emergency Provider Emergency Medicine; PCP Family Medicine
DX: M86.172 Other acute osteomyelitis, left ankle and foot (principal); L97.526 Non-pressure chronic ulcer of other part of left foot with bone involvement without evidence of necrosis; L03.032 Cellulitis of left toe; G62.9 Polyneuropathy, unspecified; L84 Corns and callosities; R60.0 Localized edema
CPT/HCPCS: 11042; 36415; 80053; 83605; 85025; 85651; 86140; 87040; 87070; 87205; 96365; 96367; 99284; J0692; J0696

== ENCOUNTER 2024-03-24 06:48 | Emergency (ER) | payer OTHER, SELFPAY ==
[2023-08-03 12:25] VITALS: BMI 21.2
[2024-03-24 06:53] VITALS: BMI 16.9
[2024-03-24 06:54] VITALS: PULSE 86; O2SAT 97
[2024-03-24 06:56] VITALS: BP 115/67; PULSE 80; O2SAT 97
[2024-03-24 07:00] VITALS: PULSE 79; O2SAT 96
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
[2024-03-24] MEDS: cefTRIAXone 2,000 MG VIAL 1000 MG IM (07:24)
--- NOTE | 2024-03-24 07:47 | PC.NURSE ---
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 Pt reports he has difficulty seeing the bottom of his foot and feeling the toe. Pt denies pain. Pt wearing ortho boot and walking with cane w/o issue.
[2024-03-24 07:48] VITALS: RESP 17
== END 2024-03-24 07:49 | disposition home or self-care (01) ==
PROVIDERS: Emergency Provider Emergency Medicine; PCP Family Medicine
DX: M86.8X7 Other osteomyelitis, ankle and foot (principal)
CPT/HCPCS: 96372; 99283; 99284; J0696

== ENCOUNTER 2024-03-25 08:23 | Emergency (ER) | payer OTHER, SELFPAY ==
[2023-08-03 12:25] VITALS: BMI 21.2
[2024-03-25 08:27] VITALS: BP 116/67; PULSE 70; RESP 16; TEMP 36.6; O2SAT 97; BMI 20.6
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
[2024-03-25] MEDS: LIDOCAINE 1% (PF) 5 ML 4.2 ML INJ (08:39)
[2024-03-25] MEDS: cefTRIAXone 2,000 MG VIAL 1000 MG IM (08:39)
== END 2024-03-25 08:44 | disposition home or self-care (01) ==
PROVIDERS: Emergency Provider Emergency Medicine; PCP Family Medicine
DX: M86.8X7 Other osteomyelitis, ankle and foot (principal)
CPT/HCPCS: 96372; 99283; 99284; J0696

== ENCOUNTER → 2024-03-26 13:07 | Outpatient (CLI) | payer OTHER, SELFPAY ==
[2023-08-03 12:25] VITALS: BMI 21.2
== END ==
LOC: WC 13:07
PROVIDERS: PCP Family Medicine; Referring Provider Family Medicine; Visit Provider Surgery
DX: L97.526 Non-pressure chronic ulcer of other part of left foot with bone involvement without evidence of necrosis (principal); G62.9 Polyneuropathy, unspecified; L84 Corns and callosities; R60.0 Localized edema
CPT/HCPCS: 99213

== ENCOUNTER → 2024-03-28 11:42 | Outpatient (CLI) | payer OTHER, SELFPAY ==
[2023-08-03 12:25] VITALS: BMI 21.2
== END ==
PROVIDERS: PCP Family Medicine; Referring Provider Family Medicine; Visit Provider Surgery
DX: L97.526 Non-pressure chronic ulcer of other part of left foot with bone involvement without evidence of necrosis (principal); G62.9 Polyneuropathy, unspecified; L84 Corns and callosities; R60.0 Localized edema
CPT/HCPCS: 99212

== ENCOUNTER → 2024-03-28 15:35 | Outpatient (CLI) | payer OTHER, SELFPAY ==
[2023-08-03 12:25] VITALS: BMI 21.2
--- NOTE | 2024-03-28 15:37 | DI.RAD.S_ITS ---
PROCEDURE: [place] GUIDED PICC PLACEMENT INDICATIONS: osteomyelitis COMPARISON: None. FINDINGS: PICC was placed by the intravenous therapy team from the right side. Fluoroscopic spot film demonstrates the tip of PICC projecting to the area of left subclavian vein. IMPRESSION: Tip of PICC projects to the area of left subclavian vein near the midline. Dictated by: Jeremiah Liz M.D. on 03/29/2024 at 10:07 Approved by: Jeremiah Liz M.D. on 03/29/2024 at 10:08
== END ==
PROVIDERS: PCP Family Medicine; Referring Provider Family Medicine; Visit Provider Family Medicine
DX: M86.9 Osteomyelitis, unspecified (principal); Z45.2 Encounter for adjustment and management of vascular access device
CPT/HCPCS: 36573

== ENCOUNTER → 2024-03-30 08:58 | Outpatient (CLI) | payer OTHER, SELFPAY ==
[2023-08-03 12:25] VITALS: BMI 21.2
== END ==
LOC: WC 08:58
PROVIDERS: PCP Family Medicine; Referring Provider Family Medicine; Visit Provider Physician Assistant
DX: L97.526 Non-pressure chronic ulcer of other part of left foot with bone involvement without evidence of necrosis (principal); G62.9 Polyneuropathy, unspecified; R60.0 Localized edema; L84 Corns and callosities; R50.9 Fever, unspecified; L03.032 Cellulitis of left toe; M86.172 Other acute osteomyelitis, left ankle and foot
CPT/HCPCS: 99213

== ENCOUNTER 2024-03-30 09:53 | Inpatient (IN) | payer OTHER, SELFPAY ==
[2023-08-03 12:25] VITALS: BMI 21.2
[2024-03-30] VITALS (12 sets, daily range): BP systolic 104–156; BP diastolic 44–83; PULSE 59–78; RESP 16; TEMP 36.6–36.9; O2SAT 96–100; BMI 20.6; BMI 20.1
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
[2024-03-30 10:56] LABS: Add Manual Diff / Slide Review NO; Basophils Absolute Auto 100 /uL (0-100); Basophils Percent Auto 1.6 % (0-2); Eosinophils Absolute Auto 200 /uL (0-450); Eosinophils Percent Auto 4.6 % (2-4); Hematocrit 32.1 % (41-53); Hemoglobin 10.9 g/dL (13.5-17.5); Lymphocytes Absolute Auto 800 /uL (1100-4500); Lymphocytes Percent Auto 20.8 % (25-40); Mean Corpuscular HGB Conc 33.9 % (30-36); Mean Corpuscular Hemoglobin 30.4 PG (26-34); Mean Corpuscular Volume 89.7 fL (80-100); Monocytes Absolute Auto 500 /uL (0-900); Monocytes Percent Auto 12.6 % (3-14); Neutrophils Absolute Auto 2400 /uL (1500-7000); Neutrophils Percent Auto 60.4 % (50-75); Platelet Count 219 X10^3/uL (150-400); Red Blood Cell Count 3.58 X10^6/uL (4.5-5.9); Red Cell Distribution Width 14.1 % (11.6-14.8); White Blood Cell Count 3.9 X10^3/uL (4.5-11.0)
[2024-03-30 11:07] LABS: Alanine Aminotransferase 15 IU/L (<50); Albumin 3.9 g/dL (3.5-5.0); Albumin Globulin Ratio 1.3 (1.0-2.8); Alkaline Phosphatase 89 U/L (38-126); Aspartate Aminotransferase 21 IU/L (17-59); BUN Creatinine Ratio 26.4 (6-22); Bilirubin Total 0.4 mg/dL (0.2-1.3); Blood Urea Nitrogen 24 mg/dL (9-20); Calcium 9.1 mg/dL (8.4-10.2); Carbon Dioxide 29 mmol/L (22-32); Chloride 105 mmol/L (98-107); Estimated Glomerular Filt Rate > 60 mL/min (>60); Glucose 105 mg/dL (80-110); HEMOLYSIS < 15 (0-50); Sodium 139 mmol/L (137-145); Total Protein 6.9 g/dL (6.3-8.2)
[2024-03-30 11:24] LABS: Procalcitonin 0.093 ng/mL (<0.5)
[2024-03-30] MEDS: cefTRIAXone 2,000 MG in SODIUM CHLORIDE 0.9% 100 ML 200 MG IV (12:31)
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
--- NOTE | 2024-03-30 18:20 | PC.NURSE ---
Day shift: Per Dr Bermudez ortho consult ordered. Dr Bermudez also said that Dr Franco was notified of consult when Pt was still in ED today.
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
[2024-03-31 04:00] VITALS: BP 147/76; PULSE 75; RESP 16; TEMP 36.9; O2SAT 98
[2024-03-31 04:32] LABS: Add Manual Diff / Slide Review NO; Basophils Absolute Auto 100 /uL (0-100); Basophils Percent Auto 1.6 % (0-2); Eosinophils Absolute Auto 400 /uL (0-450); Eosinophils Percent Auto 9.2 % (2-4); Hematocrit 33.8 % (41-53); Hemoglobin 11.5 g/dL (13.5-17.5); Lymphocytes Absolute Auto 1100 /uL (1100-4500); Lymphocytes Percent Auto 26.2 % (25-40); Mean Corpuscular HGB Conc 34.2 % (30-36); Mean Corpuscular Hemoglobin 30.7 PG (26-34); Mean Corpuscular Volume 89.8 fL (80-100); Monocytes Absolute Auto 500 /uL (0-900); Monocytes Percent Auto 12.9 % (3-14); Neutrophils Absolute Auto 2100 /uL (1500-7000); Neutrophils Percent Auto 50.1 % (50-75); Platelet Count 223 X10^3/uL (150-400); Red Blood Cell Count 3.76 X10^6/uL (4.5-5.9); Red Cell Distribution Width 14.2 % (11.6-14.8); White Blood Cell Count 4.2 X10^3/uL (4.5-11.0)
[2024-03-31 04:35] LABS: BUN Creatinine Ratio 19.6 (6-22); Blood Urea Nitrogen 19 mg/dL (9-20); Calcium 9.2 mg/dL (8.4-10.2); Carbon Dioxide 31 mmol/L (22-32); Chloride 104 mmol/L (98-107); Estimated Glomerular Filt Rate > 60 mL/min (>60); Glucose 109 mg/dL (80-110); HEMOLYSIS < 15 (0-50); Potassium 4.2 mmol/L (3.4-5.1); Sodium 139 mmol/L (137-145)
[2024-03-31 08:09] VITALS: BP 119/78; PULSE 85
[2024-03-31] MEDS: METOPROLOL ER 25 MG TABLET PO (08:09)
[2024-03-31] MEDS: PANTOPRAZOLE DR 40 MG TABLET PO (08:09)
[2024-03-31] MEDS: lisinopriL 20 MG TABLET PO (08:09)
[2024-03-31] MEDS: ENOXAPARIN 40 MG/0.4 ML SYRINGE SUBCUT (08:09)
[2024-03-31 08:13] VITALS: BP 119/78; PULSE 85; RESP 20; TEMP 37.1; O2SAT 97
[2024-03-31 08:39] VITALS: PULSE 89
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
[2024-03-31] MEDS: hydroCHLOROthiazide 25 MG TABLET 12.5 MG PO (12:18)
[2024-03-31] MEDS: cefTRIAXone 1,000 MG in SODIUM CHLORIDE 0.9% 100 ML 200 MG IV (12:18)
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
[2024-03-31 13:05] VITALS: BP 130/37; PULSE 75; RESP 16; TEMP 37.3; O2SAT 98
[2024-04-01 00:15] VITALS: BP 121/71; PULSE 75; RESP 17; TEMP 36.6; O2SAT 99
[2024-04-01 04:22] LABS: Add Manual Diff / Slide Review NO; Basophils Absolute Auto 100 /uL (0-100); Basophils Percent Auto 0.8 % (0-2); Eosinophils Absolute Auto 400 /uL (0-450); Eosinophils Percent Auto 5.3 % (2-4); Hematocrit 35.8 % (41-53); Hemoglobin 12.2 g/dL (13.5-17.5); Lymphocytes Absolute Auto 1300 /uL (1100-4500); Lymphocytes Percent Auto 18.6 % (25-40); Mean Corpuscular HGB Conc 34.1 % (30-36); Mean Corpuscular Hemoglobin 30.4 PG (26-34); Mean Corpuscular Volume 89.1 fL (80-100); Monocytes Absolute Auto 800 /uL (0-900); Monocytes Percent Auto 10.8 % (3-14); Neutrophils Absolute Auto 4600 /uL (1500-7000); Neutrophils Percent Auto 64.5 % (50-75); Platelet Count 233 X10^3/uL (150-400); Red Blood Cell Count 4.02 X10^6/uL (4.5-5.9); Red Cell Distribution Width 14.5 % (11.6-14.8); White Blood Cell Count 7.1 X10^3/uL (4.5-11.0)
[2024-04-01 04:40] LABS: BUN Creatinine Ratio 20.7 (6-22); Blood Urea Nitrogen 18 mg/dL (9-20); Calcium 9.3 mg/dL (8.4-10.2); Carbon Dioxide 28 mmol/L (22-32); Chloride 104 mmol/L (98-107); Estimated Glomerular Filt Rate > 60 mL/min (>60); Glucose 113 mg/dL (80-110); HEMOLYSIS < 15 (0-50); Potassium 4.2 mmol/L (3.4-5.1); Sodium 138 mmol/L (137-145)
[2024-04-01 04:44] LABS: HEMOLYSIS < 15 (0-50); Iron 83 ug/dL (49-181)
[2024-04-01 04:55] LABS: Percent Iron Saturation 32 % (20-50); Total Iron Binding Capacity 260 ug/dL (261-462); Transferrin 219 mg/dL (206-381)
[2024-04-01 05:39] VITALS: BP 119/72; PULSE 86; RESP 17; TEMP 36.9; O2SAT 98
[2024-04-01] MEDS: PANTOPRAZOLE DR 40 MG TABLET PO (06:01)
[2024-04-01 07:00] VITALS: BP 143/84; PULSE 84; RESP 16; TEMP 36.8; O2SAT 98
[2024-04-01 08:35] VITALS: BP 143/84; PULSE 84
[2024-04-01] MEDS: METOPROLOL ER 25 MG TABLET PO (08:35)
[2024-04-01] MEDS: hydroCHLOROthiazide 25 MG TABLET 12.5 MG PO (08:35)
[2024-04-01] MEDS: lisinopriL 20 MG TABLET PO (08:35)
[2024-04-01] MEDS: ENOXAPARIN 40 MG/0.4 ML SYRINGE SUBCUT (08:36)
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
[2024-04-01] MEDS: cefTRIAXone 1,000 MG in SODIUM CHLORIDE 0.9% 100 ML 200 MG IV (12:09)
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
[2024-04-01 16:00] VITALS: BP 130/86; PULSE 82; RESP 16; TEMP 36.8; O2SAT 97
[2024-04-01 20:00] VITALS: BP 91/61; PULSE 84; RESP 18; TEMP 37.4; O2SAT 96
[2024-04-02] VITALS (13 sets, daily range): BP systolic 103–144; BP diastolic 52–82; PULSE 78–102; RESP 12–18; TEMP 36.2–37.1; O2SAT 96–99
[2024-04-02] MEDS: SODIUM CHLORIDE 0.9% 1,000 ML 100 ML IV ×3 (00:08→17:47)
[2024-04-02 05:29] LABS: BUN Creatinine Ratio 26.2 (6-22); Blood Urea Nitrogen 22 mg/dL (9-20); Carbon Dioxide 29 mmol/L (22-32); Chloride 104 mmol/L (98-107); Estimated Glomerular Filt Rate > 60 mL/min (>60); Glucose 108 mg/dL (80-110); HEMOLYSIS < 15 (0-50); Sodium 137 mmol/L (137-145)
[2024-04-02] MEDS: METOPROLOL ER 25 MG TABLET PO (08:02)
--- NOTE | 2024-04-02 09:02 | CM.DPC ---
Addendum entered by JANAE López 04/02/24 15:10: ADD: Call from [facility] stating they are considering pt if he needs SNF but asking for updated notes and plan for IV-Abx when available. Pt just being taken off floor to OR now 1500. SW to send updated notes tomorrow Tu when available. BF Original Note: DCP HH vs SNF planning: Per Ortho Surgeon, plan is greater toe amputation today in the OR and to remain on IV Ceftriaxone at this time. Per PT, pt yesterday able to mobilize some but has some concerns that he will not have the family support in the home for assist as he typically has and considering the possibility of HH vs SNF at d/c. PT to work more with pt after surgery after determining pt's weight bearing status. JAYSON made initial referrals to [facility] and [facility] based on pt's location to his house in [place] and based on his [facility] insurance in case SNF needed at d/c. [facility] needed if SNF. JAYSON made initial HH referral to [facility] based on pt's house location and [facility] contracted with [facility]. [facility] needed if HH safe at d/c. Faxed updated clinicals to [facility] to continue to follow as pt is open to home IV-Abx with [facility] prior to admission. Per Surgeon and MD, unclear if ongoing IV-Abx needed at discharge yet. JANAE López
--- NOTE | 2024-04-02 11:20 | PT-IP ANOTE ---
Pt is scheduled for left great toe amputation at 1300. Will con't PT efforts next date. On eval, trained pt with NWB and WBAT in post-op shoe with increased external rotation and step-to gait to limit forefoot WB and so feel he will do well post-op. Currently SNF vs home with assistance.
[2024-04-02] MEDS: cefTRIAXone 1,000 MG in SODIUM CHLORIDE 0.9% 100 ML 200 MG IV (11:35)
[2024-04-02] MEDS: PANTOPRAZOLE DR 40 MG TABLET PO (11:46)
--- NOTE | 2024-04-02 15:54 | PM.PREOP ---
Pre-operative Note Interval Note History & Physical reviewed/Exam performed by Physician: Yes Changes to H&P: No
--- NOTE | 2024-04-02 16:19 | SUR.OPER ---
Supine on padded OR bed, head on pillow, arms secured on padded arm boards at <90 degrees abduction, legs uncrossed, safety belt at thigh, tape over blanket over non-operative leg, pillow under operative knee, bump under operative calf.
--- NOTE | 2024-04-02 16:39 | P.OP_ITS ---
Operative Date/Time/Diagnoses Date of procedure: 04/02/24 Time of procedure: 16:40 Pre-op diagnosis: Left great toe infected ulcer and osteomyelitis Post-op diagnosis: same Procedure & Clinicians Procedure: Left great toe distal phalanx amputation Saucerization proximal phalanx great toe Same procedure as scheduled: Yes Indications: Osteomyelitis with resulting bacteremia Surgeon: Dheeraj Richard Click Yes if Unassisted: Yes Anesthesia Type: General Operative Notes Findings: Osteomyelitis of the great toe with a tracking ulcer down to the bone Closure Type: primary Specimen(s): none sent Prosthetic devices, grafts, tissues, transplants, or devices: None Estimated Blood Loss (mL): 10 Tourniquet time (min): 20 Procedure in detail: Patient was met in the preoperative holding area his left lower extremity was marked with my initials. We again went over the risks and benefits of surgery. Risks and benefits of surgery were discussed again including the risk of infection, damage to internal structures, bleeding, nerve injury, instability, need for revision surgery, blood clots, anesthesia and . No guarantees were made regarding outcomes. Patient expressed understanding and accepted the se risks and wished to go forward with surgery and consent was signed. He was brought back to the operating room and placed supine on the operating table. He went smooth induction of general anesthesia with an LMA. The left lower extremity was prepped and draped with chlorhexidine and Betadine. A sterile tourniquet was placed on the leg. A time-out was performed and my initials were then confirmed on the left lower extremity and the tourniquet was inflated to 250 mmHg. I began with the dissection down to the bone around the toenail and around the ulcer. The ulcer tract all the way to the bone. Bone was debrided and removed from the distal phalanx. Proximal phalanx was then thoroughly debrided as well at the distal end and saucerization was performed using an awl and a Carlos. A Z-plasty flap was then made out of the remaining tissue for coverage over the proximal phalanx. The wound was then irrigated with 3 L of saline. This was sutured with 2-0 nylon in a interrupted horizontal mattress fashion. The wound was dressed with Xeroform, 4x4s and Kerlix and he was placed into a postop walking shoe. He was awoken from anesthesia and transported to the PACU without any complications. Complications: none Post-operative Condition: stable Disposition: PACU Plan for aftercare: Nonweightbearing on the toe for 6 weeks
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
[2024-04-03 00:30] VITALS: BP 112/69; PULSE 84; RESP 18; TEMP 37.3; O2SAT 97
[2024-04-03 04:41] LABS: Add Manual Diff / Slide Review NO; Basophils Absolute Auto 0 /uL (0-100); Basophils Percent Auto 0.6 % (0-2); Eosinophils Absolute Auto 100 /uL (0-450); Eosinophils Percent Auto 0.9 % (2-4); Hematocrit 30.9 % (41-53); Hemoglobin 10.9 g/dL (13.5-17.5); Lymphocytes Absolute Auto 900 /uL (1100-4500); Mean Corpuscular HGB Conc 35.1 % (30-36); Mean Corpuscular Volume 88.2 fL (80-100); Monocytes Absolute Auto 800 /uL (0-900); Monocytes Percent Auto 11.1 % (3-14); Neutrophils Absolute Auto 5400 /uL (1500-7000); Neutrophils Percent Auto 74.4 % (50-75); Platelet Count 202 X10^3/uL (150-400); Red Blood Cell Count 3.51 X10^6/uL (4.5-5.9); White Blood Cell Count 7.2 X10^3/uL (4.5-11.0)
[2024-04-03 04:51] LABS: BUN Creatinine Ratio 18.1 (6-22); Blood Urea Nitrogen 15 mg/dL (9-20); Carbon Dioxide 27 mmol/L (22-32); Chloride 106 mmol/L (98-107); Estimated Glomerular Filt Rate > 60 mL/min (>60); Glucose 115 mg/dL (80-110); HEMOLYSIS < 15 (0-50); Sodium 138 mmol/L (137-145)
[2024-04-03] MEDS: PANTOPRAZOLE DR 40 MG TABLET PO (06:31)
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
[2024-04-03 08:00] VITALS: BP 140/77; PULSE 74; RESP 16; TEMP 36.7; O2SAT 96
[2024-04-03] MEDS: METOPROLOL ER 25 MG TABLET PO (09:39)
[2024-04-03] MEDS: lisinopriL 20 MG TABLET PO (09:39)
[2024-04-03] MEDS: ENOXAPARIN 40 MG/0.4 ML SYRINGE SUBCUT (09:40)
[2024-04-03] MEDS: hydroCHLOROthiazide 25 MG TABLET 12.5 MG PO (10:30)
--- NOTE | 2024-04-03 10:55 | PT.IPTN ---
Current Diagnoses Osteomyelitis, unspecified (03/30/24) Surgery Performed Operation Date: 04/02/24 15:15 Actual Procedures p left partial great toe amputation(Left) - Dheeraj Richard MD Physical Therapy Treatment Note M2 PT-IP Current Condition Start: 04/01/24 10:19 Freq: NEEDED Status: Active Protocol: Document 04/01/24 10:15 MB (Rec: 04/01/24 11:14 MB [id number]) Physical Therapy Current Condition Current Condition Evaluation Date 04/01/24 Treatment Diagnosis Left toe infection and to be amputated 04/02/24 M3 PT-IP Subjective Start: 04/01/24 10:19 Freq: NEEDED Status: Active Protocol: Document 04/03/24 10:55 AB (Rec: 04/03/24 12:26 AB [id number]) Subjective Physical Therapy Visit Type Type Treatment Note Visit Start Time 10:55 Visit Stop Time 11:45 Number of SERVICE ORDER DISPATCHER CHIEF Visits 0 Physical Therapy Visit Comments Patient Comments agreeable to do PT M4 PT-IP Mobility and Gait Start: 04/01/24 10:19 Freq: NEEDED Status: Active Protocol: Document 04/03/24 10:55 AB (Rec: 04/03/24 12:26 AB [id number]) PT-Bed Mobility Assessment Supine to Sit Supine to Sit Independent,Head of Bed Elevated PT-Transfer Assessment Sit to and From Stand Sit to and from Stand Standby Assistance,1 Person Assistance,Use of Upper Extremities Equipment Transfer Assistive Device Gait Belt Orthotic/Prosthetic Devices or Brace: No Transfers Transfer Destination Chair Transfer Technique ambulated using knee scooter Transfer Ability Level of Assist Standby Assistance,Contact Guard Assistance,Use of Upper Extremities Comments Mobility Comments pt supine in bed and agreeable to do PT. Clarified home set up and assist. pt stated that his nephew and are not moving now and will be staying with him and can assist him. pt sleeps on his RV with 3 steps B rails to enter but uses the toilet and shower in the house next to his RV. no stair to enter and can use toilet from that level but has 14 steps to get to the shower. pt stated that he can hop into the steps but if not, he can sit and scoot his butt up the steps. pt stated that there shouldn't be any problem pt stated that he has a knee scooter. agreed to use knee scooter. completed supine to sit SBA. pt aware of NWB on LLE. completed sit to stand SBA and able to position LLE on knee scooter. pt ambulated in room using knee scooter SBA. maneuverd in/out the toilet using knee scooter. pt sat back on chair. educated pt on stair climbing and agreed to do stairs. pt ambulated from chair to w/c using knee scooter SBA. stair climbing training. attempted hoping into the steps using B rails and pt unable. pt completed sitting bump up the strair but required max X 2 to get up from the ground. pt hopped down the stairs using B rail max A and cues. pt now realized that he needs help with stairs and stated that he did not think it is going to be hard. assisted pt back to the room. pt ambulated from w/c to chair using knee scooter SBA. positioned pt on the chair. call light and table placed within reach. Gait Assessment Gait Gait Assistance Required: Standby Assistance,Contact Guard Assist Distance (Feet) 30 Able to Maintain Weight Bearing Status Yes During Gait Assistive Devices Assistive Device Gait Belt Orthotic/Prosthetic Devices or Brace: No Factors Limiting Gait Function Factors Limiting Gait Function Decreased Activity Tolerance, Poor Balance,Poor Safety Awareness Comments Gait Comments pt used knee scooter for ambualtion Stair Climbing Assessment Evaluation Level of Assist On Stairs Maximal Assistance,2 Person Assistance Devices Stair Climbing Assistive Devices Left Railing Technique/Endurance Stair Climbing Direction Ascend and Descend Stair Climbing Technique Step to Step,Sitting Bump Number of Steps Climbed 3 Stair Climbing Set # Repetitions (reps) 1 Comments Stair Climbing Comments pls refer to mobility section for details M5 PT-IP Objective Assessments Start: 04/01/24 10:19 Freq: NEEDED Status: Active Protocol: Document 04/01/24 10:15 MB (Rec: 04/01/24 11:14 MB [id number]) Orientation Orientation/Cognition Level of Alertness Alert Orientation Name,Age,Birthday,Month,Date, Year,Day of Week,Place, Situation Language Function Ability No Deficits Noted Safety Awareness Decreased Safety Awareness Memory Description No Deficits Noted Gross Range of Motion Upper Extremity ROM Impairments Defer to OT, arms appear functional except for partial left digit amputations left hand Lower Extremity ROM Assessment Left Impaired Impairments Left ankle with fused appearance and changes in all left toes, greatest great toe Strength Lower Extremity Strength Assessment Left Impaired Comments Strength Comments RLE is functional Coordination Assessment Gross Coordination Gross Coordination Impaired Sensation Assessment Sensation Gross Sensation Left LE Impaired Light Touch Absent Proprioception (Position) Absent Comments Sensation Comments Lateral distal LLE and foot without sensation M6 PT-IP Treatment Start: 04/01/24 10:19 Freq: NEEDED Status: Active Protocol: Document 04/03/24 10:55 AB (Rec: 04/03/24 12:26 AB [id number]) Physical Therapy Treatment Education Education Provided Weight Bearing Status,Safety M7 PT-IP Assessment and Plan Start: 04/01/24 10:19 Freq: NEEDED Status: Active Protocol: Document 04/03/24 10:55 AB (Rec: 04/03/24 12:26 AB [id number]) PT Summary Assessment and Plan Potential Rehabilitation Potential Fair Summary Impairments Pain,ROM,Strength,Balance, Coordination,Sensation,Tone, Cognition,Bed Mobility, Transfers,Gait,Activity Tolerance Progress Towards Goals Slow Progress due to Medical Issues,Slow Progress - Other Assessment Summary pt requiring SBA with transfers and ambulation using a knee scooter. pt required max A for stair climbing using B rails. pt stated that his nephew/ will be staying with him and can assist him. pt will benefit from HHPT. Goals Bed Mobility Goal Independent Transfer Goal Independent Gait Goal Independent Gait Distance 50 Other Goals Pt will use a knee scooter for ambulation. Pt will ascend and descend 3 steps with 2 rails and no more than CGA to allow entrance to RV. Pt will ascend and descend half flight of steps with one rail and LRAD and no more than CGA to allow safe access to shower. Days to Meet Goals 5 Frequency of Treatment Frequency Of Treatment Once a Day Treatment Plan Physical Therapy Treatment Plan Bed Mobility Training,Transfer Training,Gait Training, Therapeutic Exercise,Balance Retraining,Post Op Education, Discharge Planning,Hot or Cold Pack,Neuromuscular Re-ed, Coordination Retraining,Manual Therapy Weight Bearing Status Weight Bearing Status Non-Weight Bearing Allowed Weight Bearing Amount (enter % LLE NWB or #) (%) Recommendations To Nursing Amount of Assist Needed 1 Person Assist Discharge Recommendations PT Discharge Recommendations Home with Assistance,Home Health,Home vs SNF Transportation Needs at Discharge Private Vehicle,Wheelchair/ Cabulance
[2024-04-03] MEDS: cefTRIAXone 2,000 MG in SODIUM CHLORIDE 0.9% 100 ML 200 MG IV (12:33)
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
--- NOTE | 2024-04-03 13:50 | CM.DPC ---
DCP Cont. Reviewed EMR and team rounds for status updates. Cultures are still pending for final OP IV antibiotic plan, he was taken to surgery today by Ortho for additional amputation of some of the tissue/bone of his foot. Plan is [facility], either at home or SNF, pending.
--- NOTE | 2024-04-03 13:54 | CM.DPC ---
DCP Cont. Reviewed EMR and team rounds for status updates. Cultures are still pending for final OP IV antibiotic plan. Plan is OP [facility], either at home or SNF, pending.
[2024-04-03 16:00] VITALS: BP 128/76; PULSE 80; RESP 16; TEMP 36.6; O2SAT 99
[2024-04-03 20:00] VITALS: BP 127/79; PULSE 79; RESP 18; TEMP 36.6; O2SAT 97
--- NOTE | 2024-04-03 20:11 | PM.OP.1 ---
Operative Date/Time/Diagnoses Date of procedure: 04/03/24 Pre-op diagnosis: Right 2nd toe osteomyelitis Post-op diagnosis: same Procedure & Clinicians Procedure: Amputation of right 2nd toe and partial amputation of right 2nd metatarsal Same procedure as scheduled: Yes Indications: Osteomyelitis Surgeon: Husam Franco Click Yes if Unassisted: Yes Operative Notes Estimated Blood Loss (mL): 10 Procedure in detail: The patient was met in the preoperative holding area and surgery was discussed in detail with him. I explained the deformity that would be left in the toes following the amputation and the planned aftercare. He understood the risks of the surgery and wished to proceed. I elected to proceed with surgery this evening rather than waiting until daylight hours due to the patient's bacteremia. He was brought back to the operating room and anesthesia was induced. A time-out procedure was performed. Imaging displaying the affected digit was displayed throughout the procedure. An Esmarch was used as a local tourniquet. He was prepped and draped in the usual sterile fashion. A dorsal and volar incision extending proximally was utilized to gain access to the 2nd metatarsal. A towel clamp was placed on the toe and a disarticulation through the metatarsophalangeal joint was performed. The toe was then sent for culture. I then retracted proximally to gain exposure to the 2nd metatarsal shaft. A TPS saw was used to cut the 2nd metatarsal and this was removed with a towel clamp excising all surrounding soft tissue attachments. The wound was soaked in Betadine. The wound was copiously irrigated with normal saline. Vancomycin powder was placed in the wound bed. The wound was closed using combination of Vicryl and nylon sutures. A soft dressing was placed Post-operative Plan for aftercare: 1. Continue antibiotic course per medical team 2. Nonweightbearing right lower extremity for 6 weeks 3. Follow cultures from the toe and metatarsal head specimens 4. Follow up in 14-21 days with [facility] orthopedics with a PA
[2024-04-03] MEDS: SODIUM CHLORIDE 0.9% FLUSH 10 ML IV (20:31)
[2024-04-04 04:00] VITALS: BP 154/87; PULSE 85; RESP 20; TEMP 37.2; O2SAT 97
[2024-04-04] MEDS: PANTOPRAZOLE DR 40 MG TABLET PO (06:38)
[2024-04-04] MEDS: ACETAMINOPHEN 325 MG TABLET 650 MG PO (06:42)
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
[2024-04-04 08:00] VITALS: BP 131/91; PULSE 84; RESP 16; TEMP 36.9; O2SAT 99
[2024-04-04] MEDS: METOPROLOL ER 25 MG TABLET PO (08:41)
[2024-04-04] MEDS: hydroCHLOROthiazide 25 MG TABLET 12.5 MG PO (08:41)
[2024-04-04] MEDS: lisinopriL 20 MG TABLET PO (08:41)
[2024-04-04] MEDS: ENOXAPARIN 40 MG/0.4 ML SYRINGE SUBCUT (08:41)
[2024-04-04] MEDS: SODIUM CHLORIDE 0.9% FLUSH 10 ML IV ×2 (08:42→20:30)
[2024-04-04] MEDS: OXYCODONE IR 5 MG TABLET PO (08:48)
--- NOTE | 2024-04-04 09:10 | PT.IPTN ---
Current Diagnoses Osteomyelitis, unspecified (03/30/24) Surgery Performed Operation Date: 04/02/24 15:15 Actual Procedures p left partial great toe amputation(Left) - Dheeraj Richard MD Physical Therapy Treatment Note M2 PT-IP Current Condition Start: 04/01/24 10:19 Freq: NEEDED Status: Active Protocol: Document 04/01/24 10:15 MB (Rec: 04/01/24 11:14 MB [id number]) Physical Therapy Current Condition Current Condition Evaluation Date 04/01/24 Treatment Diagnosis Left toe infection and to be amputated 04/02/24 M3 PT-IP Subjective Start: 04/01/24 10:19 Freq: NEEDED Status: Active Protocol: Document 04/04/24 11:12 TS (Rec: 04/04/24 11:24 TS [id number]) Subjective Physical Therapy Visit Type Type Treatment Note Visit Start Time 09:10 Visit Stop Time 09:35 Number of SUMMER SESSIONS DIRECTOR Visits 1 Physical Therapy Visit Comments Patient Comments Pt found resting in bed, he is agreeable to PT. M4 PT-IP Mobility and Gait Start: 04/01/24 10:19 Freq: NEEDED Status: Active Protocol: Document 04/04/24 11:12 TS (Rec: 04/04/24 11:24 TS [id number]) PT-Bed Mobility Assessment Supine to Sit Supine to Sit Independent,Head of Bed Elevated Sit to Supine Sit to Supine Independent Scooting Scooting to Edge of Bed Independent PT-Transfer Assessment Sit to and From Stand Sit to and from Stand Standby Assistance,1 Person Assistance,Use of Upper Extremities Equipment Transfer Assistive Device None,Gait Belt,Front Wheeled Walker Orthotic/Prosthetic Devices or Brace: No Transfers Transfer Destination Bed Transfer Technique Stand Pivot Transfer Ability Level of Assist Contact Guard Assistance,Use of Upper Extremities Comments Mobility Comments Supine to sit Ind with HOB elevated. Stand pivot NWB on LLE to scooter. Pt ambulates with knee scooter ~250' SBA. He declined to do stairs this session. Pt was made NWB on forefoot of LLE. Pt ambulates ~5' CGA with FWW, appears to wber somewhat through forefoot . Pt would benefit from and would like forefoot offloading shoe. Pt most likely would be able to complete stairs, while maintaining precautions with forefoot offloading shoe. Pt was left in bed, all needs met. Gait Assessment Gait Gait Assistance Required: Standby Assistance Distance (Feet) 250 Able to Maintain Weight Bearing Status Yes During Gait Assistive Devices Assistive Device Gait Belt Orthotic/Prosthetic Devices or Brace: No Comments Gait Comments Knee scooter for ambulation. Ambulates 5' with FWW. Stair Climbing Assessment Comments Stair Climbing Comments Pt declined. PT-Balance Assessment Sitting Balance and Reactions Static Sitting Balance Ability Normal Dynamic Sitting Balance Ability Normal Standing Balance and Reactions Static Standing Balance Ability Good Dynamic Standing Balance Ability Good M5 PT-IP Objective Assessments Start: 04/01/24 10:19 Freq: NEEDED Status: Active Protocol: Document 04/01/24 10:15 MB (Rec: 04/01/24 11:14 MB [id number]) Orientation Orientation/Cognition Level of Alertness Alert Orientation Name,Age,Birthday,Month,Date, Year,Day of Week,Place, Situation Language Function Ability No Deficits Noted Safety Awareness Decreased Safety Awareness Memory Description No Deficits Noted Gross Range of Motion Upper Extremity ROM Impairments Defer to OT, arms appear functional except for partial left digit amputations left hand Lower Extremity ROM Assessment Left Impaired Impairments Left ankle with fused appearance and changes in all left toes, greatest great toe Strength Lower Extremity Strength Assessment Left Impaired Comments Strength Comments RLE is functional Coordination Assessment Gross Coordination Gross Coordination Impaired Sensation Assessment Sensation Gross Sensation Left LE Impaired Light Touch Absent Proprioception (Position) Absent Comments Sensation Comments Lateral distal LLE and foot without sensation M6 PT-IP Treatment Start: 04/01/24 10:19 Freq: NEEDED Status: Active Protocol: Document 04/04/24 11:12 TS (Rec: 04/04/24 11:24 TS [id number]) Physical Therapy Treatment Education Education Provided Weight Bearing Status,Safety M7 PT-IP Assessment and Plan Start: 04/01/24 10:19 Freq: NEEDED Status: Active Protocol: Document 04/04/24 11:12 TS (Rec: 04/04/24 11:24 TS [id number]) PT Summary Assessment and Plan Potential Rehabilitation Potential Fair Summary Impairments Pain,ROM,Strength,Balance, Coordination,Sensation,Tone, Cognition,Bed Mobility, Transfers,Gait,Activity Tolerance Progress Towards Goals Slow Progress due to Medical Issues,Slow Progress - Other Assessment Summary Pt continues to require SBA for transfer to/from knee scooter. He declined stairs at this time. Pt was made NWB on toes and can wber through rest of foot. He ambulated ~5' with FWW, appears to wber through forefoot with flat post op shoe. Pt may benefit from forefoot offloading shoe for ambulation with FWW and to perform stairs, pt agrees with this. Goals Bed Mobility Goal Independent Transfer Goal Independent Gait Goal Independent Gait Distance 50 Other Goals Pt will use a knee scooter for ambulation. Pt will ascend and descend 3 steps with 2 rails and no more than CGA to allow entrance to RV. Pt will ascend and descend half flight of steps with one rail and LRAD and no more than CGA to allow safe access to shower. Days to Meet Goals 5 Frequency of Treatment Frequency Of Treatment Once a Day Treatment Plan Physical Therapy Treatment Plan Bed Mobility Training,Transfer Training,Gait Training, Therapeutic Exercise,Balance Retraining,Post Op Education, Discharge Planning,Hot or Cold Pack,Neuromuscular Re-ed, Coordination Retraining,Manual Therapy Other Recommendations and Next Treatment Progress gait and stair Focus training. Weight Bearing Status Weight Bearing Status Non-Weight Bearing Allowed Weight Bearing Amount (enter % L toes NWB or #) (%) Recommendations To Nursing Amount of Assist Needed Standby Assistance Discharge Recommendations PT Discharge Recommendations Home with Assistance,Home Health,Home vs SNF Transportation Needs at Discharge Private Vehicle,Wheelchair/ Cabulance
--- NOTE | 2024-04-04 09:40 | DIET.CONS ---
Dietary Consultation Note Admission Date: 03/30/2024 13:03 Assessment: 78 y M admitted for osteomyelitis of greater toe s/p left partial great toe amputation. RD screened for LOS. EMR reviewed, recorded PO intakes 75-100%. Today and tomorrow pt has been doing double protein servings at dinner and breakfast. DFM reviewed for meal adequacy. Trial Ned to support healing needs. Will continue to monitor po intakes and Ned tolerance. Ht: 190.5 cm Wt: 73 kg BMI: 20.1 (underweight for age) UBW: 76.884 kg on 08/03/23 (-5% weight loss 8 months, non-severe) Last BM: 04/04/24 (04/04/24 09:09) MNA: 12 Bakari Score: 20 Diet: 04/02/24 Dinner General (Regular) Diet Diet Modifications: Food Texture: Level 7 - Regular Liquid Consistency: Level 0 - Thin Nutrition Percent Meal Consumed 100% 04/04/24 09:09 Percent Meal Consumed 75% 04/03/24 16:00 Percent Meal Consumed 100% 04/03/24 08:00 Percent Meal Consumed 100% 04/02/24 18:00 Labs: RBC 3.51 X10^6/uL (4.5-5.9) L 04/03/24 04:30 Hgb 10.9 g/dL (13.5-17.5) L 04/03/24 04:30 Hct 30.9 % (41-53) L 04/03/24 04:30 Creatinine 0.83 mg/dL (0.66-1.25) 04/03/24 04:30 Lactate 1.0 mmol/L (0.7-2.1) 03/30/24 10:50 Iron 83 ug/dL (49-181) 04/01/24 04:00 % Saturation 32 % (20-50) 04/01/24 04:00 Electronically Signed by: Jolanta Beauchamp 04/04/24 09:40 Clinical Dietitian [address] [address]
[2024-04-04] MEDS: cefTRIAXone 2,000 MG in SODIUM CHLORIDE 0.9% 100 ML 200 MG IV (13:00)
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
[2024-04-04 16:00] VITALS: BP 119/73; PULSE 76; RESP 16; TEMP 37.2; O2SAT 98
[2024-04-05] VITALS: BP 134/68; PULSE 70; RESP 22; TEMP 36.4; O2SAT 95
[2024-04-05] MEDS: PANTOPRAZOLE DR 40 MG TABLET PO (06:04)
[2024-04-05 06:25] LABS: Add Manual Diff / Slide Review NO; Basophils Absolute Auto 0 /uL (0-100); Basophils Percent Auto 0.8 % (0-2); Eosinophils Absolute Auto 400 /uL (0-450); Eosinophils Percent Auto 6.3 % (2-4); Hematocrit 34.7 % (41-53); Lymphocytes Absolute Auto 1100 /uL (1100-4500); Lymphocytes Percent Auto 17.2 % (25-40); Mean Corpuscular HGB Conc 34.6 % (30-36); Mean Corpuscular Hemoglobin 30.5 PG (26-34); Mean Corpuscular Volume 88.3 fL (80-100); Monocytes Absolute Auto 800 /uL (0-900); Monocytes Percent Auto 12.2 % (3-14); Neutrophils Absolute Auto 4000 /uL (1500-7000); Neutrophils Percent Auto 63.5 % (50-75); Platelet Count 215 X10^3/uL (150-400); Red Blood Cell Count 3.93 X10^6/uL (4.5-5.9); Red Cell Distribution Width 14.2 % (11.6-14.8); White Blood Cell Count 6.3 X10^3/uL (4.5-11.0)
[2024-04-05 06:31] LABS: Blood Urea Nitrogen 24 mg/dL (9-20); Calcium 9.3 mg/dL (8.4-10.2); Carbon Dioxide 30 mmol/L (22-32); Chloride 103 mmol/L (98-107); Estimated Glomerular Filt Rate > 60 mL/min (>60); Glucose 114 mg/dL (80-110); HEMOLYSIS < 15 (0-50); Sodium 138 mmol/L (137-145)
[2024-04-05 08:00] VITALS: BP 156/95; PULSE 90; RESP 17; TEMP 36.7; O2SAT 97
[2024-04-05 09:05] VITALS: BP 156/95; PULSE 90
[2024-04-05] MEDS: METOPROLOL ER 25 MG TABLET PO (09:05)
[2024-04-05] MEDS: hydroCHLOROthiazide 25 MG TABLET 12.5 MG PO (09:06)
[2024-04-05 09:08] VITALS: BP 156/95; PULSE 90
[2024-04-05] MEDS: lisinopriL 20 MG TABLET PO (09:08)
[2024-04-05] MEDS: SODIUM CHLORIDE 0.9% FLUSH 10 ML IV (09:08)
[2024-04-05] MEDS: ENOXAPARIN 40 MG/0.4 ML SYRINGE SUBCUT (09:09)
[2024-04-05 10:32] VITALS: PULSE 88
--- NOTE | 2024-04-05 11:14 | PT.IPTN ---
Current Diagnoses Osteomyelitis, unspecified (03/30/24) Surgery Performed Operation Date: 04/02/24 15:15 Actual Procedures p left partial great toe amputation(Left) - Dheeraj Richard MD Physical Therapy Treatment Note M2 PT-IP Current Condition Start: 04/01/24 10:19 Freq: NEEDED Status: Active Protocol: Document 04/01/24 10:15 MB (Rec: 04/01/24 11:14 MB [id number]) Physical Therapy Current Condition Current Condition Evaluation Date 04/01/24 Treatment Diagnosis Left toe infection and to be amputated 04/02/24 M3 PT-IP Subjective Start: 04/01/24 10:19 Freq: NEEDED Status: Active Protocol: Document 04/05/24 10:56 ZF (Rec: 04/05/24 11:13 ZF [id number]) Subjective Physical Therapy Visit Type Type Treatment Note Visit Start Time 09:28 Visit Stop Time 10:02 Number of BEHAVIORAL HEALTH SPECIALIST Visits 2 Physical Therapy Visit Comments Patient Comments Pt resting in bed, agreeable to PT. M4 PT-IP Mobility and Gait Start: 04/01/24 10:19 Freq: NEEDED Status: Active Protocol: Document 04/05/24 10:56 ZF (Rec: 04/05/24 11:13 ZF [id number]) PT-Bed Mobility Assessment Supine to Sit Supine to Sit Independent,Head of Bed Elevated Sit to Supine Sit to Supine Independent Scooting Scooting to Edge of Bed Independent PT-Transfer Assessment Sit to and From Stand Sit to and from Stand Standby Assistance,1 Person Assistance,Use of Upper Extremities Equipment Transfer Assistive Device None,Gait Belt,Straight Cane, Front Wheeled Walker Orthotic/Prosthetic Devices or Brace: No Transfers Transfer Destination Bed Transfer Technique Stand Pivot Transfer Ability Level of Assist Standby Assistance,Use of Upper Extremities Comments Mobility Comments Supine>Sitting EOB is Ind w/ HOB elevated. Donned forefoot offloading shoe. STS from EOB requries SBA. Pt amb x20' w/ FWW SBA, pt able to maintain NWB to L forefoot. Pt propels scooter in hallway, SBA 2x120' . Pt asc/fransisca 3steps x2, using R HR. Pt reports that he does not have room in his RV for FWW and will use SPC when at home. Pt trials SPC, amb x20' SBA. Gait Assessment Gait Gait Assistance Required: Standby Assistance Distance (Feet) 40 Able to Maintain Weight Bearing Status Yes During Gait Assistive Devices Assistive Device Gait Belt,Straight Cane,Front Wheeled Walker Factors Limiting Gait Function Factors Limiting Gait Function Decreased Activity Tolerance, Poor Balance,Poor Safety Awareness Comments Gait Comments Pt amb x20' w/FWW, x20' w/SPC and Forefoot offloading shoe, SBA. Pt maintains NWB to L forefoot. Stair Climbing Assessment Evaluation Level of Assist On Stairs Contact Guard Assistance Devices Stair Climbing Assistive Devices Right Railing Technique/Endurance Stair Climbing Direction Ascend and Descend Stair Climbing Technique Step to Step Number of Steps Climbed 3 Stair Climbing Set # Repetitions (reps) 2 Comments Stair Climbing Comments Pt requires CGA and VC for proper sequencing of steps. PT-Balance Assessment Sitting Balance and Reactions Static Sitting Balance Ability Normal Dynamic Sitting Balance Ability Normal Standing Balance and Reactions Static Standing Balance Ability Good Dynamic Standing Balance Ability Good M5 PT-IP Objective Assessments Start: 04/01/24 10:19 Freq: NEEDED Status: Active Protocol: Document 04/01/24 10:15 MB (Rec: 04/01/24 11:14 MB [id number]) Orientation Orientation/Cognition Level of Alertness Alert Orientation Name,Age,Birthday,Month,Date, Year,Day of Week,Place, Situation Language Function Ability No Deficits Noted Safety Awareness Decreased Safety Awareness Memory Description No Deficits Noted Gross Range of Motion Upper Extremity ROM Impairments Defer to OT, arms appear functional except for partial left digit amputations left hand Lower Extremity ROM Assessment Left Impaired Impairments Left ankle with fused appearance and changes in all left toes, greatest great toe Strength Lower Extremity Strength Assessment Left Impaired Comments Strength Comments RLE is functional Coordination Assessment Gross Coordination Gross Coordination Impaired Sensation Assessment Sensation Gross Sensation Left LE Impaired Light Touch Absent Proprioception (Position) Absent Comments Sensation Comments Lateral distal LLE and foot without sensation M6 PT-IP Treatment Start: 04/01/24 10:19 Freq: NEEDED Status: Active Protocol: Document 04/05/24 10:56 ZF (Rec: 04/05/24 11:13 ZF [id number]) Physical Therapy Treatment Education Education Provided Weight Bearing Status,Safety M7 PT-IP Assessment and Plan Start: 04/01/24 10:19 Freq: NEEDED Status: Active Protocol: Document 04/05/24 10:56 ZF (Rec: 04/05/24 11:13 [id number]) PT Summary Assessment and Plan Potential Rehabilitation Potential Fair Summary Impairments Pain,ROM,Strength,Balance, Coordination,Sensation,Tone, Cognition,Bed Mobility, Transfers,Gait,Activity Tolerance Progress Towards Goals Slow Progress due to Medical Issues,Slow Progress - Other Assessment Summary Pt requires SBA for transfers and amb. Pt amb w/FWW and SPC, and is able to maintain NWB to the forefoot with offloading shoe. Pt asc/fransisca x3 steps twice, w/CGA. Goals Bed Mobility Goal Independent Transfer Goal Independent Gait Goal Independent Gait Distance 50 Other Goals Pt will use a knee scooter for ambulation. Pt will ascend and descend 3 steps with 2 rails and no more than CGA to allow entrance to RV. Pt will ascend and descend half flight of steps with one rail and LRAD and no more than CGA to allow safe access to shower. Days to Meet Goals 5 Frequency of Treatment Frequency Of Treatment Once a Day Treatment Plan Physical Therapy Treatment Plan Bed Mobility Training,Transfer Training,Gait Training, Therapeutic Exercise,Balance Retraining,Post Op Education, Discharge Planning,Hot or Cold Pack,Neuromuscular Re-ed, Coordination Retraining,Manual Therapy Other Recommendations and Next Treatment Progress gait and stair Focus training. Weight Bearing Status Weight Bearing Status Non-Weight Bearing Allowed Weight Bearing Amount (enter % L toes NWB or #) (%) Recommendations To Nursing Amount of Assist Needed Standby Assistance Discharge Recommendations PT Discharge Recommendations Home with Assistance,Home Health,Home vs SNF Transportation Needs at Discharge Private Vehicle,Wheelchair/ Cabulance
[2024-04-05] MEDS: cefTRIAXone 2,000 MG in SODIUM CHLORIDE 0.9% 100 ML 200 MG IV (12:22)
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
--- NOTE | 2024-04-05 14:22 | CM.DPC ---
DCP Cont. Reviewed EMR and team rounds for status updates. Pt's final detailed culture study will not be available until Tuesday, 04/08. The decision was made to d/c him home for the weekend, and f/u with Dr. Guerra early next week to discuss whether he will need a few weeks of home IV antibiotics, or if he will be treated with oral. He is being sent home with oral Vancomycin for the interim over the weekend. This SEISMOMETER OPERATOR called [facility] and updated them of current plan. Pt will keep his PICC line in until the final plan is made early next week.
[2024-04-05] MEDS: MINOCYCLINE HCL 100 MG CAPSULE 200 MG PO (14:27)
--- NOTE | 2024-04-05 16:36 | PC.NURSE ---
Day shift: Left unit at approx 1625 via WC. Taken by this procedure writer. His friend is here to drive him home to [place]. Paperwork is signed and all questions answered. His PICC was removed per Dr Bermudez prior to discharge and he tolerated well. They are stopping at [facility] to pick up attendant new oral antibiotic. Pt has all personal belongings.
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
== END 2024-04-05 16:25 | disposition home or self-care (01) | DRG 505 ==
LOC: ED 12:20 → AC 13:03
PROVIDERS: Orthopaedic Surgery; Admitting Provider Family Medicine; Emergency Provider Emergency Medicine; PCP Family Medicine; Referring Provider Emergency Medicine; Visit Provider Family Medicine
PROC: 0Y6Q0Z3 Detachment at Left 1st Toe, Low, Open Approach (ICD-10-PCS; principal; 2024-04-02 15:15)
DX: M86.8X7 Other osteomyelitis, ankle and foot (principal); I10 Essential (primary) hypertension; D64.9 Anemia, unspecified; N40.0 Benign prostatic hyperplasia without lower urinary tract symptoms; G89.29 Other chronic pain; M79.605 Pain in left leg; R20.0 Anesthesia of skin; B96.89 Other specified bacterial agents as the cause of diseases classified elsewhere; Z87.19 Personal history of other diseases of the digestive system; Z66 Do not resuscitate; Z45.2 Encounter for adjustment and management of vascular access device; Z96.662 Presence of left artificial ankle joint; S39.92XS Unspecified injury of lower back, sequela; V95 Accident to powered aircraft causing injury to occupant
CPT/HCPCS: 36415; 36573; 36592; 80048; 80053; 83540; 83550; 83605; 84145; 85025; 87070; 87075; 87077; 87186; 87205; 96365; 97116; 97161; 97530; 97535; 99212; 99283; 99285; J0696; J1100; J1642; J1650; J2405; J2704; J3010

== ENCOUNTER → 2024-04-11 09:57 | Outpatient (CLI) | payer OTHER, SELFPAY ==
[2024-03-30 13:23] VITALS: BMI 20.1
== END ==
PROVIDERS: PCP Family Medicine; Referring Provider Family Medicine; Visit Provider Surgery
DX: T81.31XA Disruption of external operation (surgical) wound, not elsewhere classified, initial encounter (principal); S91.102A Unspecified open wound of left great toe without damage to nail, initial encounter; R60.0 Localized edema
CPT/HCPCS: 97597; 99213

== ENCOUNTER → 2024-04-13 11:39 | Outpatient (CLI) | payer OTHER, SELFPAY ==
[2024-03-30 13:23] VITALS: BMI 20.1
== END ==
PROVIDERS: PCP Family Medicine; Referring Provider Family Medicine; Visit Provider Physician Assistant
DX: T81.89XA Other complications of procedures, not elsewhere classified, initial encounter (principal); S91.102A Unspecified open wound of left great toe without damage to nail, initial encounter; R20.8 Other disturbances of skin sensation; R60.0 Localized edema
CPT/HCPCS: 99212

== ENCOUNTER → 2024-04-16 10:30 | Outpatient (CLI) | payer OTHER, SELFPAY ==
[2024-03-30 13:23] VITALS: BMI 20.1
== END ==
PROVIDERS: PCP Family Medicine; Referring Provider Family Medicine; Visit Provider Surgery
DX: T81.89XA Other complications of procedures, not elsewhere classified, initial encounter (principal); L98.8 Other specified disorders of the skin and subcutaneous tissue; S91.102A Unspecified open wound of left great toe without damage to nail, initial encounter; R60.0 Localized edema
CPT/HCPCS: 99213

== ENCOUNTER → 2024-04-18 13:00 | Outpatient (CLI) | payer OTHER, SELFPAY ==
[2024-03-30 13:23] VITALS: BMI 20.1
== END ==
PROVIDERS: PCP Family Medicine; Referring Provider Family Medicine; Visit Provider Surgery
DX: T87.89 Other complications of amputation stump (principal); L98.8 Other specified disorders of the skin and subcutaneous tissue; R60.0 Localized edema; Z89.412 Acquired absence of left great toe; I10 Essential (primary) hypertension; G62.9 Polyneuropathy, unspecified
CPT/HCPCS: 99213

== ENCOUNTER → 2024-04-23 10:23 | Outpatient (CLI) | payer OTHER, SELFPAY ==
[2024-03-30 13:23] VITALS: BMI 20.1
== END ==
PROVIDERS: PCP Family Medicine; Referring Provider Family Medicine; Visit Provider Surgery
DX: S91.102D Unspecified open wound of left great toe without damage to nail, subsequent encounter (principal); T81.31XD Disruption of external operation (surgical) wound, not elsewhere classified, subsequent encounter
CPT/HCPCS: 99212; 99213

== ENCOUNTER → 2024-07-10 16:10 | Outpatient (CLI) | payer OTHER, SELFPAY ==
[2024-03-30 13:23] VITALS: BMI 20.1
--- NOTE | 2024-07-10 16:13 | DI.RAD.S_ITS ---
PROCEDURE: XR FOOT LT 2V INDICATIONS: Osteomyelitis, unspecified TECHNIQUE: 3 views of the foot were acquired. COMPARISON: [facility], CR, XR FOOT LT MIN 3V, 03/16/2024, 16:08. FINDINGS: Bones: 1st ray amputation changes at the DIP , and 4th ray amputation changes at the PIP appreciated. There is resorption of the distal aspect of the 4th proximal phalanx resulting in a a pencil type deformity.. There is also resorption of the tuft of the 2nd distal phalanx and the 5th distal phalanx. Malunified old fracture of the mid 4th metatarsal appreciated. Joints: Severe 1st MTP degenerative change appreciated . Solid arthrodesis across the 1st MTT provided by 2 screws-anatomic alignment. Severe degeneration of the 2nd 3rd 4th and 5th MTT joints are also partially fused. Ankle arthrodesis shows anatomic alignment. Severe talocalcaneal fusion are degeneration noted. There is severe talonavicular degeneration. Soft tissues: Moderate diffuse soft tissue swelling is increased IMPRESSION: Chronic findings as described. No plain film evidence of osteomyelitis. This may require MRI to be certain. Diffuse soft tissue swelling likely represents cellulitis Dictated by: James Mcculre M.D. on 07/11/2024 at 11:29 Approved by: James Mcclure M.D. on 07/11/2024 at 11:33
== END ==
LOC: RAD 16:11
PROVIDERS: PCP Family Medicine; Referring Provider Family Medicine; Visit Provider Family Medicine
DX: M86.9 Osteomyelitis, unspecified (principal); M79.89 Other specified soft tissue disorders; M19.072 Primary osteoarthritis, left ankle and foot; S92.342S Displaced fracture of fourth metatarsal bone, left foot, sequela; Z98.1 Arthrodesis status; Z89.412 Acquired absence of left great toe; Z89.422 Acquired absence of other left toe(s)
CPT/HCPCS: 73620